=== PATIENT | male | born 1975 | race Caucasian/White ===

== ENCOUNTER 2017-03-22 18:31 | Emergency (ER) | payer OTHER ==
[~2017-03-22] VITALS: Ht 182.9 cm; Wt 99.8 kg
[~2017-03-22 18:31] MED LIST: AMITRIPTYLINE100 M1 PO; ATORVASTATIN CA10 MG PO; BABY ASPIRIN CH81 MG PO; BACTRIM DS 8001 TAB PO; CATAPRES 0.1MG0.1 MG PO; CHLORPROMAZINE25 M2 PO; CIPRO 500MG TA500 MG PO; CLOZAPINE100 MG PO; CLOZAPINE200 MG PO; CLOZARIL25 MG PO; ESCITALOPRAM20 MG PO; FAZACLO PO; FAZACLO25 MG PO; FOLIC ACID 1 MG PO; FOLIC ACID1 M1 PO; GABAPENTIN300 M2 PO; GABAPENTIN400 MG PO; HUMALOG 100U100 U/ML SC; HUMALOG100 U/ML SC; HYDROXYZINE PA100 MG PO; HYDROXYZINE PAM50 MG PO; IBUPROFEN400 MG PO; IBUPROFEN600 M1 PO; JARDIANCE10 MG PO; JARDIANCE25 MG PO; KEFLEX500 MG PO; LAMICTAL 25MG T25 MG PO; LAMICTAL 25MG25 MG PO; LAMOTRIGINE100 MG PO; LAMOTRIGINE200 MG PO; LEVEMIR 10100 UNITS/ SC; LEVEMIR100 UNIT/1 SC; LIPITOR40 M1 PO; LITHIUM CARBON150 M1 PO; LITHIUM CARBON150 MG PO; LITHIUM CARBON300 M2 PO; LITHIUM CARBON300 M3 PO; LITHIUM CARBON300 M4 PO; LITHIUM CARBON300 M5 PO; LITHIUM CARBON450 M1 PO; LORAZEPAM1 MG PO; LYRICA100 MG PO; METHYL B PO; MIRTAZAPINE15 MG PO; MOTRIN 400 MG400 MG PO; MOTRIN 400MG (400 MG PO; NALTREXONE HCL50 MG PO; NATURAL FOLIC0.4 MG PO; NEURONTIN100 MG PO; NICODERM C14 MG/24 H TOP; NOVOLIN R1000 UNIT2 SC; NOVOLOG100 U/ML SC; NOVOLOG100 UNIT/2 SC; OMEPRAZOLE20 M2 PO; OMEPRAZOLE40 M1 PO; ONE DAILY MULT1 EAC2 PO; PANTOPRAZOLE SO20 MG PO; PERCOCET 325 MG1 TA2 PO; PHENOBARBITAL30 M1 PO; PHENOBARBITAL32.4 M1 PO; POLYTRIM EYE DR10 ML OP; PRAZOSIN HCL1 M1 PO; PRAZOSIN HCL2 M1 PO; PRAZOSIN HCL2 MG PO; PRINIVIL 5MG5 MG PO; PROPRANOLOL HCL10 MG PO; PROPRANOLOL HCL20 MG PO; PROZAC10 M1 PO; REMERON 15MG TA15 MG PO; REMERON30 MG PO; RISPERIDONE0.5 M1 PO; Senokot S PO; TRAZODONE HCL100 M1 PO; TRAZODONE HCL150 M1 PO; TYLENOL500 MG PO; Theragran Vitamins PO; V-GO SC; VENLAFAXINE HYD75 M1 PO; VIGAMOX3 ML OPH; VITAMIN B-1100 MG PO; VITAMIN B-150 MG PO; VITAMIN B1100 MG PO; ZOFRAN 4 MG TABL4 MG PO; ZOLPIDEM TARTRA10 MG PO; ZOLPIDEM TARTRAT5 MG PO
[2017-03-22 19:05] LABS: ABSOLUTE BASOPHIL COUNT 0 /CUMM (0.0-0.2); ABSOLUTE EOSINOPHIL COUNT 0.2 /CUMM (0.0-0.7); ABSOLUTE GRANULOCYTE CT 6.2 /CUMM (1.4-6.5); ABSOLUTE LYMPH COUNT 2.6 /CUMM (1.2-3.4); ABSOLUTE MONOCYTE COUNT 0.8 /CUMM (0.10-0.60); BASOPHIL % 0.4 % (0.0-2.0); EOSINOPHIL % 2.4 % (0-5); GRANULOCYTE % 62.3 % (42.2-75.2); MEAN CORPUSCULAR HGB 31.1 PG (27.0-31.0); MEAN CORPUSCULAR HGB CONC 33.5 G/DL (33.0-37.0); MEAN CORPUSCULAR VOLUME 92.8 FL (80.0-94.0); MEAN PLATELET VOLUME 7.2 FL (7.4-10.4); PLATELET COUNT 358 /CUMM (130-400); RBC DISTRIBUTION WIDTH 13.6 % (11.5-14.5); RED BLOOD CELL CT 4.53 /CUMM (4.70-6.10); WHITE BLOOD CELL COUNT 9.9 /CUMM (4.8-10.8)
--- NOTE | 2017-03-23 00:01 | ED AMS/SEIZURE/WEAK/DIZZY ---
History of Present Illness General Chief Complaint: General Adult Stated Complaint: BIBA WITH UN RESPONSE Source: patient, EMS Exam Limitations: not alert/orientated Vital Signs & Intake/Output Vital Signs & Intake/Output Vital Signs Date Time Temp Pulse Resp B/P B/P Pulse O2 O2 Flow FiO2 Mean Ox Delivery Rate 03/23 0052 96.8 85 18 134/63 97 Room Air 03/22 2246 96.7 83 18 131/61 98 03/22 1934 96.7 80 20 128/67 100 Nasal 2.0L Cannula 03/22 1841 96 Nasal 2.0L Cannula 03/22 1840 89 20 118/59 93 Room Air ED Intake and Output 03/23 0000 03/22 1200 Intake Total 1600 Output Total 600 Balance 1000 Intake, IV 1600 Output, Urine 600 Patient 220 lb Weight Weight Estimated Measurement Method Allergies Coded Allergies: quetiapine (Severe, THROAT CLOSES 05/03/16) perphenazine (Mild, ANXIETY 05/03/16) Reconcile Medications Aspirin (Children's Aspirin) 81 MG TAB 162 MG PO DAILY HEART HEALTH Atorvastatin Calcium (Lipitor) 40 MG TABLET 1 TAB PO DAILY CHOLESTEROL ( Reported) Chlorpromazine HCl 25 MG TABLET 25 MG PO TID Antipsychotic Fluoxetine HCl (Prozac) 10 MG CAPSULE 1 CAP PO DAILY MENTAL HEALTH (Reported) Folic Acid 1 MG TABLET 1 MG PO DAILY vitamin supplementation Insulin Aspart (Novolog) 100 UNIT/1 ML VIAL 0 UNITS SC TIDAC Diabetes Blood sugar Units 80-150 4 units 151-200 6 units 201-250 8 units 251-300 10 units 301-350 12 units 351-400 14 units Insulin Aspart (Novolog) 100 UNIT/1 ML VIAL 0 UNITS SC AT BEDTIME diabetes 80-250 : 0 units 251-300 : 2 units 301-350 : 3 units 351: 400 4 units Insulin Detemir (Levemir) 100 UNIT/1 ML VIAL 22 UNITS SC BID Diabetes Lisinopril (Prinivil) 5 MG TAB 1 TAB PO DAILY BP (Reported) Stepping Stone Carbonate (Stepping Stone Carbonate ER) 450 MG TABLET.ER 1 TAB PO DAILY MENTAL HEALTH (Reported) Stepping Stone Carbonate 300 MG TABLET 600 MG PO QHS MENTAL HEALTH (Reported) Multivitamin (One Daily Multivitamin) 1 EACH TABLET 1 TAB PO DAILY supplement Omeprazole 20 MG CAPSULE.DR 20 MG PO DAILY AC Reflux Prazosin HCl 1 MG CAPSULE 1 CAP PO QPM HTN (Reported) Thiamine HCl (Vitamin B-1) 100 MG TABLET 1 TAB PO DAILY SUPPLEMENTS Trazodone HCl 150 MG TABLET 1 TAB PO QPM DEPRESSION (Reported) Triage Note: BIBA AFTER BEING FOUND UNRESPONSIVE AT HOME BY FAMILY MEMBER. LAST KNOWN WELL WAS LAST PM AT 1700. PT WITH HX OF ETOH ABUSE AND WAS RECENTLY DISCHARGED FROM A 60 DAY ETOH REHAB CENTER. PER EMS WAS RESPONSIVE TO DEEP PAIN ONLY, GLUCOSE 169. 18 GUAGE PLACED IN FIELD. IVF BOLUS INFUSING. --UPON ARRIVAL PT WITH EYES CLOSED, RESPONDING TO VERBAL STIMULI, PUPILS 8MM ROUND AND REACTIVE. RESPIRATIONS UNLABORED SKIN WARM AND DRY. DR WILLIS IN TO SEE PT UPON ARRIVAL Triage Nurses Notes Reviewed? yes HPI: Mr. Mccrary is a 42 yo m w/ PMH of DTs, peripheral neuropathy, hypertension, hyperlipidemia, asthma, COPD, TIM, GERD, cirrhosis, bipolar disorder, alcohol dependence status post 60 day rehabilitation, diabetes with insulin pump in place and previous DKA BIBA for unresponsive state. Per EMS, patient LAST seen normal by his daughter last night. She saw him briefly this morning and he seemed alright and when she came home later on today he was unresponsive. Patient was recently discharged from a 60 day rehabilitation facility for alcohol intoxication. Per EMS patient's initial glucose was 160s. He was slightly hypotensive and her out with blood pressure 92 systolic. He aroused only to painful stimuli and loud verbal stimuli moderating incomprehensible sounds. Patient is unable to provide much history given his mental status. Past History Travel History Traveled to [place] past 21 day No Medical History Any Pertinent Medical History? 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 Yes Review of Systems Review of Systems Constitutional: Reports: see HPI. Comments Initially, unable to obtain review of systems secondary to lethargy. Review of systems: See HPI, All other systems negative. Constitutional: no chills no fever, no malaise no weight loss HEENT: No visual changes, no sore throat, no congestion, no ear pain Cardiovascular: No chest pain , no palpitations, no orthopnea Skin: no rashes, no change in skin Respiratory: No dyspnea no cough no sputum no hemoptysis GI: No nausea, no vomiting, no diarrhea, no bloating/constipation : + urinary retention. No dysuria No hematuria, no frequency, no discharge Musculoskeletal: No joint pain, no joint swelling, no back pain, no neck pain, Neurologic: No numbness no confusion, no headache Psych: No stress, no depression. Heme/endocrine: No bruising no bleeding Immunology: No lymphadenopathy Physical Exam Physical Exam General Appearance: well developed/nourished, no apparent distress, lethargic, obese Head: atraumatic, normal appearance Eyes: Bilateral: PERRL, EOMI, other (dilated to 8mm bilaterally). Ears, Nose, Throat: normal pharynx, normal ENT inspection Neck: normal inspection, supple Respiratory: normal breath sounds, chest non-tender, no respiratory distress Cardiovascular: regular rate/rhythm Gastrointestinal: normal bowel sounds, soft Rectal: deferred Back: normal inspection Extremities: normal range of motion Neurologic/Psych: no motor/sensory deficits, depressed affect Skin: intact, normal color, warm/dry Core Measures ACS in differential dx? No CVA/TIA Diagnosis: No Severe Sepsis Present: No Septic Shock Present: No Progress Differential Diagnosis: alcohol intoxication, benign positional vertigo, CVA/ stroke, dehydration, drug intoxication, encephalitis, electrolyte imbalance, hypoglycemia, seizure disorder, DKA Plan of Care: Orders Procedure Date/time Status FingerStick- Glucose 03/22 183 Active URINE DRUGS OF ABUSE 03/22 183 Complete LACTIC ACID 03/22 1838 Complete ETHANOL 03/22 1838 Complete COMPREHENSIVE METABOLIC PANEL 03/22 183 Complete CBC WITHOUT DIFFERENTIAL 03/22 183 Complete EKG 03/22 183 Active Laboratory Tests 03/22/17 2138: Lactic Acid Cancelled 03/22/17 1857: Anion Gap 12, Estimated GFR > 60, BUN/Creatinine Ratio 10.0, Glucose 122 H, Lactic Acid 1.7, Calcium 8.6, Total Bilirubin 0.4, AST 87 H, ALT 55, Alkaline Phosphatase 100, Total Protein 6.7, Albumin 4.0, Globulin 2.7, Albumin/Globulin Ratio 1.5, CBC w Diff NO MAN DIFF REQ, RBC 4.53 L, MCV 92.8, MCH 31.1 H, RDW 13.6, MPV 7.2 L, Gran % 62.3, Lymphocytes % 26.5, Monocytes % 8.4, Eosinophils % 2.4, Basophils % 0.4, Absolute Granulocytes 6.2, Absolute Lymphocytes 2.6, Absolute Monocytes 0.8 H, Absolute Eosinophils 0.2, Absolute Basophils 0, PUBS MCHC 33.5, Serum Alcohol 295.0 03/22/17 1830: Urine Opiates Screen < 100.00, Methadone Screen 42, Barbiturate Screen < 60, Ur Phencyclidine Scrn < 6.00, Amphetamines Screen < 100, U Benzodiazepines Scrn < 85, Urine Cocaine Screen < 50, Urine Cannabis Screen < 5.00 42 yo m BIBA for AMS and lethargy. Normal initial vitals here in ED despite inital BP being 92 systolically. Glucose was within normal limits. Given patient's past medical history of alcohol abuse and recent discharge from rehabilitation, likely this is an episode of alcohol intoxication. We'll obtain basic labs including ethanol level as well as serum tox and urine tox. Patient' s initial vitals here in the ED are otherwise unremarkable. Initial glucose was noted to be elevated. Patient did have an insulin pump that was connected in the right lower quadrant. This was removed and placed with the rest of his belongings. After the exposure, there is no evidence of trauma. Patient does arouse to verbal stimuli and is able to mumble some sentences. Patient's ethanol is 295. Patient is comfortably sleeping. Will allow for him to rest pending sobriety and then reassess. Patient speaking clearly. He denies HI/SI. Review of systems at that point in time was obtained. The patient endorses having a few drinks today. He thinks he fell asleep and that's why his daughter was unable to arouse him. Patient by mouth challenge here in ED. He then ambulated without any gait disturbance. Patient's daughter was called and she picked him up here to take home. (HASEEB LACKEY,[place]) Initial ED EKG: none Departure Departure Time of Disposition: 0004 Disposition: HOME OR SELF CARE Condition: Stable Clinical Impression Primary Impression: Alcohol intoxication Referrals: VIKASH CORNELIUS APRN (PCP/Family) Additional Instructions: Please do not drink alcohol as it can cause you to fall or have a serious injury or even . Use your insulin pump as prescribed by her primary care doctor. Make sure you eat some food when you take your insulin, especially if you have been drinking. If you have any falls, worsening pain or any other concerning symptoms please return to the emergency department for further evaluation. Departure Forms: Customer Survey General Discharge Information
[2017-03-23 00:52] VITALS: BP 134/63
== END 2017-03-23 01:01 ==
LOC: ERH 18:31
PROVIDERS: Emergency Medicine
DX: F10.129 Alcohol abuse with intoxication, unspecified (principal); E11.9 Type 2 diabetes mellitus without complications; Z79.4 Long term (current) use of insulin; I10 Essential (primary) hypertension
CPT/HCPCS: 80307; 93005; 93010; 96360; 96361; G0480

== ENCOUNTER → 2017-05-08 | Day surgery (SDC) | payer OTHER ==
[~2017-05-08] VITALS: Ht 175.3 cm; Wt 95.3 kg
[~2017-05-08] MED LIST changes: +CHLORPROMAZINE PO; +CHLORPROMAZINE50 M2; +EFFEXOR XR150 M1 PO; +NEURONTIN600 M1 PO; +PROTONIX40 M3 PO; +SIMVASTATIN10 M1 PO
[2017-05-08 08:54] LABS: ABSOLUTE BASOPHIL COUNT 0 /CUMM (0.0-0.2); ABSOLUTE EOSINOPHIL COUNT 0.2 /CUMM (0.0-0.7); ABSOLUTE LYMPH COUNT 1.1 /CUMM (1.2-3.4); ABSOLUTE MONOCYTE COUNT 0.5 /CUMM (0.10-0.60); BASOPHIL % 0.4 % (0.0-2.0); GRANULOCYTE % 79.7 % (42.2-75.2); HEMATOCRIT 44.3 % (42-52); MEAN CORPUSCULAR HGB 30.6 PG (27.0-31.0); MEAN CORPUSCULAR HGB CONC 33.1 G/DL (33.0-37.0); MEAN CORPUSCULAR VOLUME 92.7 FL (80.0-94.0); MEAN PLATELET VOLUME 7.9 FL (7.4-10.4); PLATELET COUNT 271 /CUMM (130-400); RBC DISTRIBUTION WIDTH 14.3 % (11.5-14.5); RED BLOOD CELL CT 4.78 /CUMM (4.70-6.10); WHITE BLOOD CELL COUNT 8.8 /CUMM (4.8-10.8)
--- NOTE | 2017-05-08 14:23 | Operative Report ---
Operative/Inv Procedure Report Surgery Date: 05/08/17 Name of Procedure: Excision pilonidal cyst Pre-Operative Diagnosis: Pilonidal cyst Post-Operative Diagnosis: Same Estimated Blood Loss: scant Surgeon/Bait Painter: TANO LACKEY,ANAND Harp/Onel ATKINSON Anesthesia: local monitored anesthesi Operative/Procedure Note Note: After consent he is brought to the operating room and laid prone. He was sedated and his gluteal region prepped and draped. There was a solitary pilonidal pit in the midline. There was induration extending to the right of the midline. An ellipse of skin was marked around the defect and associated cyst to create a right angled elliptical excision. The skin was after local anesthesia and then the skin incised sharply. Carried dissection through subcutaneous tissues tissues with cautery to circumferentially excise the pit in associated cyst. Wound was then irrigated with saline and hemostasis achieved with cautery. To close the skin we elevated a flap at the corner of the "T". And sutured the corner to the contralateral side with the interrupted mattress 4 -0 nylon suture. The 2 flap edges were then reapproximated with interrupted mattress sutures, vertical. Wound was dressed with bacitracin ointment and sterile gauze. Patient tolerated procedure well CC: VIKASH CRONELIUS APRN
== END ==
LOC: STS 03:11
PROVIDERS: Surgery
DX: L05.91 Pilonidal cyst without abscess (principal); J44.9 Chronic obstructive pulmonary disease, unspecified; F17.200 Nicotine dependence, unspecified, uncomplicated; E11.9 Type 2 diabetes mellitus without complications; Z79.4 Long term (current) use of insulin; Z96.41 Presence of insulin pump (external) (internal); I10 Essential (primary) hypertension; K21.9 Gastro-esophageal reflux disease without esophagitis; E78.00 Pure hypercholesterolemia, unspecified
CPT/HCPCS: 36415; J2250

== ENCOUNTER 2017-05-30 20:43 | Inpatient (IN) | payer OTHER ==
[~2017-05-30] VITALS: Ht 175.3 cm; Wt 64.1 kg
[~2017-05-30 20:43] MED LIST changes: -CHLORPROMAZINE PO; -CHLORPROMAZINE50 M2; +NEURONTIN400 M1 PO; -NEURONTIN600 M1 PO; +PRINIVIL5 M1 PO
--- NOTE | 2017-05-30 20:46 | ED PSYCHIATRIC COMPLAINT ---
See Addendum History of Present Illness General Chief Complaint: Psychiatric Related Complaint Stated Complaint: +SI Source: patient, EMS Exam Limitations: no limitations Vital Signs & Intake/Output Vital Signs & Intake/Output Vital Signs Date Time Temp Pulse Resp B/P B/P Pulse O2 O2 Flow FiO2 Mean Ox Delivery Rate 05/31 1210 98.0 78 18 138/82 97 Room Air Room Air 05/31 1200 98.0 78 18 138/82 05/31 0705 97.2 86 18 138/64 05/31 0630 97.2 86 18 138/64 97 Room Air 05/31 0042 96.7 83 16 111/59 94 Room Air 05/30 2240 98.0 84 16 142/76 95 Room Air 05/30 2049 98.7 96 18 140/67 97 Room Air ED Intake and Output 05/31 0000 05/30 1200 Intake Total Output Total Balance Patient 210 lb Weight Weight Reported by Patient Measurement Method Allergies Coded Allergies: quetiapine (Severe, THROAT CLOSES...SEROQUEL 05/06/17) perphenazine (Mild, ANXIETY...TRILAFON 05/06/17) clozapine (From CLOZARIL) (SEIZURES 05/06/17) Reconcile Medications Aspirin (Children's Aspirin) 81 MG TAB 162 MG PO DAILY HEART HEALTH [CHLORPROMAZINE] 125 MG PO NIGHTLY MENTAL HEALTH (Reported) Chlorpromazine HCl 50 MG TABLET 1 TAB BID MENTAL HEALTH (Reported) Gabapentin (Neurontin) 600 MG TABLET 1 TAB PO TID SEIZURES (Reported) Lisinopril (Prinivil) 5 MG TAB 1 TAB PO DAILY BP (Reported) [place] Carbonate ([place] Carbonate ER) 450 MG TABLET.ER 1 TAB PO DAILY MENTAL HEALTH (Reported) [place] Carbonate 300 MG TABLET 600 MG PO QHS MENTAL HEALTH (Reported) Pantoprazole Sodium (Protonix) 40 MG TABLET.DR 1 TAB PO DAILY GERD (Reported) Prazosin HCl 1 MG CAPSULE 2 CAP PO QPM HTN (Reported) Simvastatin (Simvastatin*) 10 MG TABLET 1 TAB PO QPM CHOLESTEROL (Reported) Trazodone HCl 100 MG TABLET 2 TAB PO QPM SLEEP (Reported) Venlafaxine HCl (Effexor XR) 150 MG CAP.ER.24H 1 CAP PO DAILY MENTAL HEALTH ( Reported) Triage Nurses Notes Reviewed? yes Onset: Abrupt Duration: day(s): (1), constant, continues in ED, getting worse Timing: single episode today Severity: mild, moderate Associated Symptoms: anxiety, suicidal ideation HPI: 42-year-old male with past medical history of depression and suicidal ideation presents for evaluation of suicidal thoughts. Patient states he is been fighting with his family at his girlfriend over the past few days. Today he began thinking about hurting himself and developed a plan to cut his wrists. He called the suicide hotline who called 911 and he was brought in by EMS. Patient has a history of prior suicide attempts with insulin overdose. Patient states that he drank a pint of vodka earlier today before he startED having the thoughts. She denies taking any overdose of any medications. He denies recent alcohol regularly last drink was 2 weeks ago and today. He is taking all of his psychiatric meds as directed. He denies any illicit drug use. No chest pain no shortness of breath no illicit drug use. No other associated symptoms. (EMELIA VELASQUEZ PA-C) Past History Travel History Traveled to [place] past 21 day No Medical History Any Pertinent Medical History? 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 Yes (EMELIA VELASQUEZ PA-C) Review of Systems Review of Systems Constitutional: Reports: no symptoms. EENTM: Reports: no symptoms. Respiratory: Reports: no symptoms. Cardiovascular: Reports: no symptoms. GI: Reports: no symptoms. Genitourinary: Reports: no symptoms. Musculoskeletal: Reports: no symptoms. Skin: Reports: no symptoms. Neurological/Psychological: Reports: see HPI, anxiety, depressed, emotional problems, other (SI). Hematologic/Endocrine: Reports: no symptoms. Immunologic/Allergic: Reports: no symptoms. All Other Systems: Reviewed and Negative (EVA WATTS,EMELIA) Physical Exam Physical Exam General Appearance: well developed/nourished, no apparent distress, alert, awake , anxious Neurological/Psychiatric: no motor/sensory deficits, awake, alert, anxious, depressed affect, oriented x 3 Appearance/Memory/Insight: appropriate appearance, appropriate insight Behavoir/Eye Contact/Speech: cooperative, normal speech, good eye contact Thoughts/Hallucinations: normal thought pattern, no apparent hallucination Skin: intact, normal color, warm/dry Comments: General: Hemodynamically stable. Afebrile. Well-developed well-nourished person in no acute distress. Head: Atraumatic, normocephalic Eyes: EOMI bilaterally, PERRLA, conjunctiva are not injected, no discharge, no nystagmus, fundus grossly normal bilaterally Nose: Atraumatic, no rhinorrhea, mucosa is not erythematous, no epistaxis. Sinuses are non-tender Ears: TM pearly amado color bilaterally, external canal is clear, no discharge, hearing is normal Mouth: Appropriate dentition, no gingival bleeding, moist mucus membranes, no oral lesions, tonsils not erythematous or enlarged and free of exudate. Uvula rises midline. Neck: Supple, full active ROM, no lymphadenopathy, no midline tenderness to palpation, no thyromegaly, no tracheal deviation. Back: Non-tender, full active ROM, no scoliosis, no CVA tenderness Cardiovascular: regular rate and rhythm, no murmurs, rubs, or gallops. No JVD Respiratory: Chest is nontender. Regular respiratory rate and effort. No accessory muscle use. Lungs clear to auscultation bilaterally. Abdomen: Soft, non-tender, non-distended, no organomegaly. No rebound tenderness or guarding. Normoactive bowel sounds. Extremities: No edema. No gross deformities. No joint swelling. No calf swelling or tenderness. Full active and passive ROM. Strength 5/5 in upper and lower extremities. Peripheral pulses 2+ bilaterally, Patellar DTR 2+ Neuro: No confusion. Motor and sensory function is intact. Appropriate gait. Cerebellar function intact. Skin: Warm and dry. Appropriate turgor. No lesions or bruising. No appreciable rash on exposed skin. Cleared? (statement below) Yes Medical Clearance Statement * patient denies further consideration of suicide * outpt. psych referral * no evidence of toxic ingestion * on re-evaluation the patient is awake and alert with normal speech and normal gait. The patient is clinically sober and safe for discharge / detox referral SAD PERSONS SAD PERSONS Response Value Male Sex? yes 1 Age <19 or >45 years? yes 1 Depression/Hopelessness? yes 2 Previous Attempts/Psych Care yes 1 Excessive Ethanol/Drug Use? yes 1 Rational Thinking Loss? yes 2 Single//? yes 1 Organized/Serious Attempt yes 2 Social Support? has support 0 Stated Future Intent? yes 2 Total 13 SAD PERSONS Done? yes (EMELIA VELASQUEZ PA-C) Progress Differential Diagnosis: dementia, drug intoxication, drug overdose, drug withdrawal, electrolyte abnormality, hypoglycemia, DEPPRESION, ANXIETY Plan of Care: Orders Procedure Date/time Status Regular Diet 05/31 B Active LITHIUM 05/30 2115 Complete Continuous Observation Monitor 05/30 2100 Active ED CRISIS PSYCH CONSULT 05/30 2049 Active URINE DRUG SCREEN FOR ER ONLY 05/30 2047 Complete URINALYSIS 05/30 2047 Complete ETHANOL 05/30 2047 Complete COMPREHENSIVE METABOLIC PANEL 05/30 2047 Complete CBC WITHOUT DIFFERENTIAL 05/30 2047 Complete Laboratory Tests 05/30/172114: Anion Gap 14, Estimated GFR > 60, BUN/Creatinine Ratio 12.9, Glucose 146 H, Calcium 9.7, Total Bilirubin 0.4, AST 15 L, ALT 30, Alkaline Phosphatase 71, Total Protein 7.1, Albumin 4.4, Globulin 2.7, Albumin/Globulin Ratio 1.6, CBC w Diff NO MAN DIFF REQ, RBC 4.70, MCV 92.3, MCH 30.3, RDW 14.4, MPV 7.7, Gran % 75.1, Lymphocytes % 16.1 L, Monocytes % 6.8, Eosinophils % 1.2, Basophils % 0.8 , Absolute Granulocytes 9.8 H, Absolute Lymphocytes 2.1, Absolute Monocytes 0.9 H, Absolute Eosinophils 0.2, Absolute Basophils 0.1, PUBS MCHC 32.8 L, [place] 1.0, Serum Alcohol 220.0 05/30/172104: [place] Cancelled 05/30/172103: Urine Opiates Screen < 100.00, Methadone Screen < 40, Barbiturate Screen < 60, Ur Phencyclidine Scrn < 6.00, Amphetamines Screen < 100, U Benzodiazepines Scrn < 85, Urine Cocaine Screen < 50, Urine Cannabis Screen < 5.00, Urine Color STRAW , Urine Clarity CLEAR, Urine pH 6.0, Ur Specific [place] <= 1.005, Urine Protein NEG, Urine Ketones NEG, Urine Nitrite NEG, Urine Bilirubin NEG, Urine Urobilinogen 0.2, Ur Leukocyte Esterase NEG, Ur Microscopic EXAM NOT REQUIRED, Urine Hemoglobin NEG, Urine Glucose NEG Patient will be medically cleared before seeing crisis. He is currently reports drinking a pint of vodka today so likely he will need to sober up overnight. We will also check a lithium level. 10:30 PM: Blood work is within normal limits. Ethanol level is elevated to about 200. Discussed case with crisis. They will let him sober up before seeing him in the morning. 1 AM: Patient has been resting comfortably. Patient signed out to Dr. Coello. (EMELIA VELASQUEZ PA-C) Hand-Off Endorsed To: LAZ COONEY MD Endorsed Time: 0115 Pending: consult (crisis) (EMELIA VELASQUEZ PA-C) Hand-Off Endorsed To: GREGORIA BARTH DO Endorsed Time: 0700 Pending: consult (LAZ COONEY MD) Departure Departure Disposition: STILL A PATIENT Condition: Stable Referrals: VIKASH CORNELIUS APRN (PCP/Family) Departure Forms: Customer Survey General Discharge Information (EMELIA VELASQUEZ PA-C) Departure Clinical Impression Primary Impression: Suicidal ideation Secondary Impressions: Alcohol intoxication PA/PARK ACTIVITIES COORDINATOR Co-Sign Statement Statement: ED Attending supervision documentation- x I saw and evaluated the patient. I have also reviewed all the pertinent lab results and diagnostic results. I agree with the findings and the plan of care as documented in the PA's/PARK ACTIVITIES COORDINATOR's documentation. [] I have reviewed the ED Record and agree with the PA's/PARK ACTIVITIES COORDINATOR's documentation. [] Additions or exceptions (if any) to the PAs/PARK ACTIVITIES COORDINATOR's note and plan are summarized below: [] (LAZ COONEY MD) Departure Comments 05/31/17 12:22 pm The patient was signed out to me by at 7 AM. He is pending evaluation by crisis. (GREGORIA BARTH DO)
--- NOTE | 2017-05-30 21:00 | NUR ---
PT BIBA ON PEC.. PT STATES THAT HE CALLED THE HELP LINE AND STATED THAT HE CANT TAKE IT ANYMORE AND THAT HE WAS GOING TO OFF HIMSELF. WHEN POLICE ARRIVED PT STATED TO POLICE THAT HE HAD A KNIFE TO HIS ARM. PT ADMITS TO DRINKING A PINT OF VODKA. PT AMBULATED TO THE BATHROOM WITH A WOBBLY GAIT.. PT SPEECH IS SLURRED.. PT HAS A HX OF DM AND HAS A PUMP ON HIM.. PT STATES HIS LAST BLOOD SUGAR WAS 343 AT 1600 TODAY
--- NOTE | 2017-05-30 21:01 | NUR ---
CHINA VELASQUEZ AT BEDSIDE FOR EVALUATION
--- NOTE | 2017-05-30 21:21 | NUR ---
LABS DRAWN (SST, LAV) AND SENT TO LAB
[2017-05-30 21:22] LABS: ABSOLUTE BASOPHIL COUNT 0.1 /CUMM (0.0-0.2); ABSOLUTE EOSINOPHIL COUNT 0.2 /CUMM (0.0-0.7); ABSOLUTE GRANULOCYTE CT 9.8 /CUMM (1.4-6.5); ABSOLUTE LYMPH COUNT 2.1 /CUMM (1.2-3.4); ABSOLUTE MONOCYTE COUNT 0.9 /CUMM (0.10-0.60); BASOPHIL % 0.8 % (0.0-2.0); EOSINOPHIL % 1.2 % (0-5); GRANULOCYTE % 75.1 % (42.2-75.2); HEMATOCRIT 43.4 % (42-52); MEAN CORPUSCULAR HGB 30.3 PG (27.0-31.0); MEAN CORPUSCULAR HGB CONC 32.8 G/DL (33.0-37.0); MEAN CORPUSCULAR VOLUME 92.3 FL (80.0-94.0); MEAN PLATELET VOLUME 7.7 FL (7.4-10.4); PLATELET COUNT 276 /CUMM (130-400); RBC DISTRIBUTION WIDTH 14.4 % (11.5-14.5)
--- NOTE | 2017-05-30 21:55 | NUR ---
Crisis consult received, however the patient is not appropriate for evaluation this evening, given his BAL. He will be held over and evaluated in the AM. Case discussed with RN, Evelyn, Dr. Humphries and Dr. Arango.
--- NOTE | 2017-05-30 22:39 | NUR ---
PT AMBULATED TO BATHROOM WITH STRONG STEADY GAIT. PT STATES THAT HE FELLS A LITTLE BETTER BUT IS STILL NOT DOING WELL.
--- NOTE | 2017-05-30 22:47 | NUR ---
PT'S BED CHANGED FROM HALLWAY TO ROOM 13. PT ASKED TO REMOVE HIS INSULIN PUMP. 2ND VALUABLES BAG PLACED IN ED SAFE. BSG = 156.
--- NOTE | 2017-05-31 02:50 | NUR ---
RESTING NO DISTRESS. SITTER IN PLACE
--- NOTE | 2017-05-31 04:02 | NUR ---
PATIENT CONTINUES TO SLEEP AT THIS TIME W/ REGULAR RESPIRATIONS NOTED. AWAITING CRISIS EVAL IN AM. SITTER REMAINS W/ PATIENT.
--- NOTE | 2017-05-31 06:31 | NUR ---
VSS, PT INFORMED BREAKFAST WILL ARRIVE AT 0700.
--- NOTE | 2017-05-31 06:32 | NUR ---
SITTER IN PLACE FOR SAFETY.
[2017-05-31 07:05] VITALS: BP 138/64
--- NOTE | 2017-05-31 07:29 | NUR ---
PT SLEEPING AT THIS TIME, REGULAR RESPIRATIONS NOTED. SITTER REMAINS AT DOORWAY.
--- NOTE | 2017-05-31 10:30 | NUR ---
PT RESTING COMFORTABLY, NO COMPLAINTS AT THIS TIME.
[2017-05-31 12:00] VITALS: BP 138/82
[2017-05-31] MEDS ORDERED: ASPIRIN EC81 M1 PO (12:27)
[2017-05-31] MEDS ORDERED: HYDROXYZINE PAM25 M2 PO (12:31)
[2017-05-31] MEDS ORDERED: PROAIR HFA8.5 GM INH (12:32)
[2017-05-31] MEDS ORDERED: BENZTROPINE MESY1 M1 PO (12:33)
--- NOTE | 2017-05-31 12:35 | NUR ---
REPEAT ACCUCHECK: 278, RE-MED WITH REGULAR INSULIN 6 UNITS, AND ATIVAN 1MG PO FOR C/O ANXIETY AND SLIGHT TREMORS.
[2017-05-31] MEDS ORDERED: CHLORPROMAZINE50 M2 PO (12:36)
[2017-05-31] MEDS ORDERED: OXYCODONE-ACET1 EACH PO (12:37)
[2017-05-31] MEDS ORDERED: HUMALOG100 UNIT/1 (12:38)
[2017-05-31] MEDS ORDERED: LITHIUM CARBON150 M1 PO (12:38)
[2017-05-31 14:00] VITALS: BP 136/64
--- NOTE | 2017-05-31 14:15 | NUR ---
PT INFORMED OF PLAN OF CARE: BED SEARCH.
--- NOTE | 2017-05-31 14:30 | ED PSYCH CRISIS CONSULTATION ---
See Addendum Crisis Consult Basic Assessment Date of Consult: 05/31/17 Responsible Person/Accompanied By: None/Self Insurance Authorization: Insurance #1: Insurance name: COURTNEY Perez C&A Phone number: Policy number: [id number] Group number: Authorization number: ED Provider: Patient's ED Provider: EMELIA VELASQUEZ PA-C Primary Care Physician: Patient's PCP: VIKASH CORNELIUS APRN PCP's Current Psychiatrist: Kacy Nguyen APRN at [facility] Chief Complaint: Psychiatric Related Complaint Patient's Quote: "I wanted to hurt myself, but I guess the knife was too dull." Present Illness: 42 M BIBA on PEER 05/30/17 @ 2100, after he called the [facility] to state that he can't take it anymore and he was going to off himself, per the triage note. He told police that he put a knife to his arm. No lacerations or puncture noted. He had drunk one pint of vodka that day. He had been inpatient at [facility] and then [facility] from May 2016 through February,, per his casemanager at [facility], Kacy Stoll, . Per TC with her, the patient had suicidal thoughts begin to return last week, when he had an argument with his girlfriend, Ayesha, who is the mother of their two children. He missed his IOP session at [facility] on Saturday, due to a planned dental appointment. He was stable on Saturday. The patient reports feeling depressed about the argument with Ayesha, and also a disagreement with their daughter, Vito Vivar, who gave him excuses to not take him to the bank yesterday. Earlier in the day, he had used [facility] to go to a followup appointment with Dr. Hansel Mcqueen after a cyst removal on his buttock two weeks ago. He had purchased the pint of vodka he drank after [facility] MD appointment. He cannot identify a trigger for his thought sof self-harm yesterday. He has 2X/day VNA visits from Tonja at [facility]. they saw him on 05/30/17 in the AM, but prepoured meds for 05/29/17. They also prepoured for 05/30/17 PM, since he had a late MD appointment with Dr. Mcqueen. The patient reports he started drinking at 4 PM. MSE: Today, he is alert and oriented. He denies SI/HI. He denies AH or VH, and presents no saumya delusions. He reports sleeping well at home and that his appetite is normal. He denies hopelessness, helplessness and worthlessness. He denies other alcohol use before yesterday's relapse. He denies other drug use. He has a history of cutting in his 30's. The patient reports he had wanted to cut his left forearm, "But the knife was dull, I guess." He denies having thoughts of killing himself. He live in the basement of his sister Gabriela's house with his two daughters. Their mother, Ayesha, is in residential psychiatric care in [place]. Collateral: The patient's sister, Bethany, (C), is very concerned about his safety if he is discharged without inpatient psychiatric treatment, "You are signing a warrant if you release him now." Despite his denials of drinking, she believes he has been drinking regularly, but has had little contact with him. Patient's Address: [address] [place] [address] Other Who Do You Live With? Family Family/Informants Interviewed: Bethany, sister, (C) [facility], Kacy Stoll , Allergies - Coded Allergies: quetiapine (Severe, THROAT CLOSES...SEROQUEL 05/06/17) perphenazine (Mild, ANXIETY...TRILAFON 05/06/17) clozapine (From CLOZARIL) (SEIZURES 05/06/17) Current Medications - Scheduled Medications Aspirin (Ecotrin*) 81 MG TABLET. 1 TAB PO DAILY HEART HEALTH (Reported) Entered as Reported by MAKENZIE BOJORQUEZ on 05/31/17 1227 Chlorpromazine HCl 25 MG TABLET 5 TAB PO QPM MENTAL HEALTH (Reported) Entered as Reported by STACEY VIGIL on 05/07/17 0900 Chlorpromazine HCl 50 MG TABLET 1 TAB PO BID MENTAL HEALTH (Reported) Entered as Reported by MAKENZIE BOJORQUEZ on 05/31/17 1236 Gabapentin (Neurontin) 400 MG CAPSULE 1 CAP PO TID SEIZURES (Reported) Entered as Reported by STACEY VIGIL on 05/07/17 0858 Lisinopril (Prinivil) 5 MG TABLET 1 TAB PO DAILY BP (Reported) Entered as Reported by CHAKA MISTRY on 11/07/15 1609 Huson Carbonate (Huson Carbonate ER) 450 MG TABLET.ER 1 TAB PO DAILY MENTAL HEALTH (Reported) Entered as Reported by CAROLE ESPOSITO on 05/24/16 0109 Huson Carbonate 300 MG TABLET 600 MG PO QHS MENTAL HEALTH (Reported) Entered as Reported by CAROLE ESPOSITO on 05/24/16 0110 Huson Carbonate 150 MG CAPSULE 1 CAP PO QPM MENTAL HEALTH #30 (Reported) Entered as Reported by MAKENZIE BOJORQUEZ on 05/31/17 1238 Pantoprazole Sodium (Protonix) 40 MG TABLET.DR 1 TAB PO DAILY GERD (Reported) Entered as Reported by STACEY VIGIL on 05/07/17 0857 Prazosin HCl 1 MG CAPSULE 2 CAP PO QPM HTN (Reported) Entered as Reported by CAROLE ESPOSITO on 05/24/16 0111 Simvastatin (Simvastatin*) 10 MG TABLET 1 TAB PO QPM CHOLESTEROL (Reported) Entered as Reported by STACEY VIGIL on 05/07/17 0900 Venlafaxine HCl (Effexor XR) 150 MG CAP.ER.24H 1 CAP PO DAILY MENTAL HEALTH ( Reported) Entered as Reported by STACEY VIGIL on 05/07/17 0858 Scheduled PRN Medications Albuterol Sulfate (Proair Hfa) 90 MCG HFA.AER.AD 2 PUF INH Q4-6 PRN PRN SHORTNESS OF BREATH (Reported) Entered as Reported by MAKENZIE BOJORQUEZ on 05/31/17 1232 Benztropine Mesylate 1 MG TABLET 1 TAB PO BID PRN TREMORS (Reported) Entered as Reported by MAKENZIE BOJORQUEZ on 05/31/17 1233 Chlorpromazine HCl 25 MG TABLET 1 TAB PO Q6P PRN AGITATION (Reported) Entered as Reported by STACEY VIGIL on 05/07/17 0859 Hydroxyzine Pamoate 25 MG CAPSULE 1 CAP PO Q4 HRS NEEDED PRN AGITATION ( Reported) Entered as Reported by MAKENZIE BOJORQUEZ on 05/31/17 1231 Oxycodone HCl/Acetaminophen (Oxycodone-Acetaminophen 5-325) 5 MG-325 MG TABLET 1 TAB PO Q6-8P PRN PAIN #20 (Reported) Entered as Reported by MAKENZIE BOJORQUEZ on 05/31/17 1237 Trazodone HCl 100 MG TABLET 2 TAB PO QPM PRN SLEEP (Reported) Entered as Reported by STACEY VIGIL on 05/07/17 0858 Miscellaneous Medications Insulin Lispro (Humalog) (Unknown Strength) CARTRIDGE (Unknown Dose) DM ( Reported) Entered as Reported by MAKENZIE BOJORQUEZ on 05/31/17 1238 Laboratory Results: Laboratory Tests 05/30/172114: Anion Gap 14, Estimated GFR > 60, BUN/Creatinine Ratio 12.9, Glucose 146 H, Calcium 9.7, Total Bilirubin 0.4, AST 15 L, ALT 30, Alkaline Phosphatase 71, Total Protein 7.1, Albumin 4.4, Globulin 2.7, Albumin/Globulin Ratio 1.6, CBC w Diff NO MAN DIFF REQ, RBC 4.70, MCV 92.3, MCH 30.3, RDW 14.4, MPV 7.7, Gran % 75.1, Lymphocytes % 16.1 L, Monocytes % 6.8, Eosinophils % 1.2, Basophils % 0.8 , Absolute Granulocytes 9.8 H, Absolute Lymphocytes 2.1, Absolute Monocytes 0.9 H, Absolute Eosinophils 0.2, Absolute Basophils 0.1, PUBS MCHC 32.8 L, Huson 1.0, Serum Alcohol 220.0 05/30/172104: Huson Cancelled 05/30/172103: Urine Opiates Screen < 100.00, Methadone Screen < 40, Barbiturate Screen < 60, Ur Phencyclidine Scrn < 6.00, Amphetamines Screen < 100, U Benzodiazepines Scrn < 85, Urine Cocaine Screen < 50, Urine Cannabis Screen < 5.00, Urine Color STRAW , Urine Clarity CLEAR, Urine pH 6.0, Ur Specific [place] <= 1.005, Urine Protein NEG, Urine Ketones NEG, Urine Nitrite NEG, Urine Bilirubin NEG, Urine Urobilinogen 0.2, Ur Leukocyte Esterase NEG, Ur Microscopic EXAM NOT REQUIRED, Urine Hemoglobin NEG, Urine Glucose NEG Past History Past Medical History Neurological: delerium tremens, peripheral neuropathy, seizure (partial complex) , history of withdrawal seizure EENT: NONE Cardiovascular: hypertension, hyperlipidemia Respiratory: asthma, COPD, obstructive sleep apnea Gastrointestinal: GERD Hepatic: cirrhosis, cholecystectomy appendectomy Renal: NONE Musculoskeletal: NONE Psychiatric: alcohol dependence, bipolar disease, History of suicide attempts. Endocrine: diabetes, diabetic ketoacidosis (multiple episodes), hypoglycemia Blood Disorders: NONE Cancer(s): NONE PATIENT RESOURCE SPECIALIST/Reproductive: h/o epid/orchitis Past Surgical History Surgical History: appendectomy, cholecystectomy Psychosocial History Strengths/Capabilities: Pt is able to articulate his wants and needs. Pt is asking for help. Pt identifies as creative. He has supportive services through [facility] and [facility]. Physical Limitations (Interventions): None identified. 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 How much used/taken 1 pint vodka How often Unclear Substance Abuse Treatment Substance Abuse Treatment Past Substance Abuse TX Yes Inpatient Treatment Yes Outpatient Treatment Yes Location of Treatment [facility] Reason for Treatment Alcohol use d/o Dates of Treatment Many admissions in recent years Response to Treatment Improved Current Mental Status Mental Status Orientation: Person, Place, Situation Affect: Constricted, Sad Speech: Soft Neuro-vegetative: Anhedonia, Loss of Interest Appearance Appearance- Dress/Hygiene: Dissheveled Behaviors Thought Process: Thought Blocking Thought Content: Thought Blocking Memory: Impaired Insight: Fair SI/HI Risk Assessment Past Suicidal Ideation/Attempts Yes Current Suicidal Ideation/Att No Past Homicidal Ideation/Att: No Current Homicidal Ideation/Attempts No Danger To: Self Gravely Disabled: Lack of Insight, Poor Impulse Control, Poor Judgment Risk Factors: history of suicide atmpts, SA/MH hospitalized, substance abuse, poor impulse control, male Lethality Ratin PTSD Checklist PTSD Done? patient declined ED Management Sitter: Yes Restraints: No DSM5/PS Stressors/Medical Prob Diagnosis' (DSM 5, Stressors, Medical): F31.9 Bipolar d/o, unspecified F10.20 alcohol use d/o, severe Current GAF: 28 Departure Disposition Psych Medical Clearance Date: 05/31/17 Medically Cleared at: 1215 Time Started: 1215 Time Ended: 1235 Psychiatrist Consulted: Nba LACKEY,Edward Date Disposition Established: 05/31/17 Time Disposition Established: 1245 Plan for Disposition - Modality: Bed Search Rationale for Disposition: The patient has been suicidal since last week, per his case advocate, Kacy, at [facility]. He has a history of suicide attempts by hanging and insulin overdose. His sister has grave concerns for his safety if he is not treated as an inpatient for psychiatry. Type of IP Admission: PEC Referrals VIKASH CORNELIUS APRN (PCP/Family)
--- NOTE | 2017-05-31 20:30 | NUR ---
CHINA VELASQUEZ AWARE OF PT'S FINGERSTICK.
--- NOTE | 2017-05-31 21:07 | NUR ---
NICOTINE PATCH APPLIED TO LEFT DELTOID PER EMAR.
--- NOTE | 2017-06-01 01:23 | NUR ---
PT SLEEPING QUIETLY, EVEN RR NOTED, NO S/S OF WITHDRAWAL NOTED.
--- NOTE | 2017-06-01 05:10 | NUR ---
PT NOTED TO BE SLEEPING ON BED. SITTER IN PLACE. WILL CONTINUE TO MONITOR.
--- NOTE | 2017-06-01 06:45 | NUR ---
PT BS 328. PT MEDICATED WITH INSULIN PER EMAR.
[2017-06-01 06:49] VITALS: BP 130/69
--- NOTE | 2017-06-01 07:43 | NUR ---
REPORT RECEIVED. PT OBSERVED ASLEEP. SITTER IN ATTENDANCE.
--- NOTE | 2017-06-01 08:19 | NUR ---
C/O FEELING SHAKY. MILDLY DIAPHORETIC. NO TREMORS NOTED AT PRESENT. VS STABLE. ACCUCHECK 260. REPORTED TO DR COONEY.
[2017-06-01 08:32] VITALS: BP 119/56
--- NOTE | 2017-06-01 08:48 | NUR ---
ATIVAN GIVEN DIRECTED.
--- NOTE | 2017-06-01 09:27 | NUR ---
NICOTINE PATCH APPLIED TO RT ARM. PATCH ON LT ARM REMOVED.
--- NOTE | 2017-06-01 10:41 | NUR ---
Pt remains on a PEC for inpt psych tx and a bed search is being done. clinical faxed to [facility], [facility], and [facility]
--- NOTE | 2017-06-01 11:53 | NUR ---
PT IS CRYING, SHAKING AND ANXIOUS. REPORTS NOT FEELING WELL WITH NAUSEA CONTINUED. POOR PO INTAKE TODAY. MD NOTIFIED AND PLAN FOR ORDER OF DAILY MEDS.
--- NOTE | 2017-06-01 12:08 | NUR ---
[facility] decined transfer as they no longer have availability
--- NOTE | 2017-06-01 12:36 | NUR ---
MEDICATED WITH DAILY MEDS AND EMOTIONAL SUPPORT PROVIDED
--- NOTE | 2017-06-01 12:55 | NUR ---
[facility] declined pt
--- NOTE | 2017-06-01 14:10 | ED PSYCHIATRIST/APRN CONSULT ---
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 He has remained in ER pending bed, he continues to endorse depression and not feeling safe if he were to return home, he denies acute SI "i just want help" states sleeping okay and compliant with medications that have been restarted w/o SE. He feels hopeless helpless and requesting inpatient hospitalization. his behaviors have been good with no overnight events MSE: CM, ASA laying in bed, cooperative aaox3. poor eye contact. soft slow speech. depressed mood congruent/dyisphoric affect. linear denies acute si/hi or psychosis. i/j limited a/p depressive d/o alcohol use disorder, r/o simd continue bed search for inpatient hospitals continue rx as prescribed
[2017-06-01 16:15] VITALS: BP 118/67
--- NOTE | 2017-06-01 16:15 | NUR ---
WOUND TO SACRAL/COCCYX AREA CLEANED, BACITRACIN APPLIED AND DRESSING APPLIED. TOLERATED WELL. MEDICATED WITH NEURONTINE AND PRN ATARAX PER eMAR FOR ANXIETY AND SHAKINESS. REPORTS FEELING BETTER AFTER RECEIVING DAILY MEDS AND HE WAS ABLE TO ALSO GET SOME REST. OFFERS NO OTHER COMPLAINTS AT THIS TIME. SITTERS REMAIN PRESENT FOR SAFETY
[2017-06-01 20:30] VITALS: BP 123/63
--- NOTE | 2017-06-01 21:51 | NUR ---
drafter civil engineering met with pt. Pt states he takes Trazodone 200 mgs and Thorazine 150mgs at night.
--- NOTE | 2017-06-01 22:33 | NUR ---
PT AWAKEN FOR NIGHT MEDS, MEDICATED PER EMAR. PT OFFERING NO NEEDS AT THIS TIME. SITTER AT DOORWAY.
--- NOTE | 2017-06-02 02:10 | NUR ---
PT NOTED TO BE ASLEEP ON BED. NO DISTRESS NOTED. WILL CONTINUE TO MONITOR.
--- NOTE | 2017-06-02 04:42 | NUR ---
PT CONTINUES TO REST ON BED. NORMAL RISE AND FALL OF CHEST NOTED. SITTER IN PLACE.
--- NOTE | 2017-06-02 06:33 | NUR ---
PT RESTING AWAKE ON BED. PT DENIES ANY COMPLAINTS AT THIS TIME. SITTER REMAINS IN PLACE.
--- NOTE | 2017-06-02 06:41 | NUR ---
PT MEDICATED WITH INSULIN PER EMAR.
--- NOTE | 2017-06-02 06:55 | NUR ---
patient remains sleeping at this time. lights remain dimmed to promote rest and comfort. sitter remains in place for safety and contant observation. will continue to monitor.
--- NOTE | 2017-06-02 07:10 | NUR ---
REPORT GIVEN TO ERIC VASQUEZ.
--- NOTE | 2017-06-02 08:15 | NUR ---
pharm called for meds.
[2017-06-02 08:48] VITALS: BP 127/74
--- NOTE | 2017-06-02 08:49 | NUR ---
PT MEDICATED WITH ATIVAN PO WILL CONT. TO MONITOR
--- NOTE | 2017-06-02 10:08 | NUR ---
PT MEDICATED DIRECTED PT OFFERS NO COMPLAINTS
--- NOTE | 2017-06-02 10:55 | NUR ---
CRISIS IN ROOM FOR EVAL
--- NOTE | 2017-06-02 12:15 | NUR ---
PT IN ROOM WAITING FOR PLACEMENT
[2017-06-02 12:44] VITALS: BP 109/57
--- NOTE | 2017-06-02 13:10 | NUR ---
PT RESTING NO DISTRESS NOTED
--- NOTE | 2017-06-02 14:52 | NUR ---
PT CALM AND COOPERATIVE SITTER AT DOOR
[2017-06-02 15:03] VITALS: BP 112/60
--- NOTE | 2017-06-02 15:14 | ED PSYCHIATRIST/APRN CONSULT ---
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 He still reports depression and anixety but "i feel better and want to leave". He denies si/hi or psychosis. He has been medication compliant w/o SE. he denies cravings urges to drink or any WD sx. CM, ASA, dressed in hospital gown, laying in bed lights off under blankets. + pmr. Guarded, limited eye contact. soft slow speech "im ok" mood incongruent affect dyshphoric affect. linear denies si/hi or psychosis i/j limited A/P pt still requires inpatient hospitalization will continue to look into bed options, he reports improvement in mood past 24 hours and if he is re-evaluated in the morning and appropriate safe dc planning can be made rounding Psychiatrist can explose option to dc home but at this time high risk factors and improvement in mood are subjective and not observable over time.
[2017-06-02 15:30] VITALS: BP 112/60
--- NOTE | 2017-06-02 15:35 | NUR ---
Crisis Note: Pt not accepted at [facility]. At this time there are no other beds available in the state.
--- NOTE | 2017-06-02 16:21 | NUR ---
SACRAL COCCYX WOUND CLEANED AND DRESSED WITH BACITRACIN. BROWN DRAINAGE NOTED TO OLD DRESSING. NO ACTIVE OOZING NOTED ON ASSESSMENT. PT AWARE OF PLAN FOR INSULIN AND NEURONTIN ORDER.
--- NOTE | 2017-06-02 16:31 | NUR ---
MEDICATED PER eMAR
[2017-06-02 17:55] VITALS: BP 114/63
--- NOTE | 2017-06-02 17:55 | NUR ---
PT REMAINS STABLE, ALERT AND SLIGHTLY ANXIOUS BUT MUCH IMPROVED SINCE YESTERDAY. LESS TREMULOUS AND APPETITE IMPROVED. MEDICATED WITH THORAZINE PER eMAR. PLAN FOR PT'S NORMAL DOSE OF 125MG AT BEDTIME
--- NOTE | 2017-06-02 19:26 | NUR ---
PT RESTING ON BED. NO DISTRESS NOTED. SITTER IN PLACE. WILL CONTINUE TO MONITOR.
--- NOTE | 2017-06-02 20:51 | NUR ---
PT RESTING ON BED. NO DISTRESS NOTED. WILL CONTINUE TO MONITOR.
--- NOTE | 2017-06-02 21:32 | NUR ---
PHARMACY CALLED FOR MEDS.
--- NOTE | 2017-06-02 23:58 | NUR ---
PT RESTING ON BED. NO DISTRESS NOTED. SITTER IN PLACE. WILL CONTINUE TO MONITOR.
--- NOTE | 2017-06-03 02:28 | NUR ---
PT SLEEPING ON BED IN ROOM. RR WNL. NO APPARENT DISTRESS NOTED. SITTER PRESENT
--- NOTE | 2017-06-03 04:00 | NUR ---
PT NOTED TO BE ASLEEP ON BED. NORMAL RISE AND FALL OF CHEST NOTED. SITTER REMAINS IN PLACE.
--- NOTE | 2017-06-03 06:04 | NUR ---
PT NOTED TO BE ASLEEP ON BED. NORMAL RISE AND FALL OF CHEST NOTED. SITTER IN PLACE.
--- NOTE | 2017-06-03 07:01 | NUR ---
REPORT GIVEN TO ERIC PALM.
--- NOTE | 2017-06-03 07:09 | NUR ---
ASSUMED CARE, PT AWAKE AND ALERT AT THIS TIME, OFFERS NO COMPLAINTS BUT ASK THIS NURSE IF SHE CAN CHANGE THE DRESSING ON HIS BUTTOCKS AFTER. PT STATES THAT HE HAD AN ABCESS TAKING CARE OF. DENIES PAIN AND REMAINS CALM AND COPERATIVE. PT AWARE THAT CRISIS IS DOING A BED SEARCH.
--- NOTE | 2017-06-03 08:32 | NUR ---
PHARMACY GETTING MEDS READY
--- NOTE | 2017-06-03 08:54 | NUR ---
THIS NURSE SPOKE WITH DR BARTH ABOUT PT HAVING HISTORY OF DIABETES AND USUALLY WEARS AN INSULIN PUMP. PT DOES NOT HAVE PUMP ON AT THIS TIME. FS 329.
--- NOTE | 2017-06-03 09:06 | NUR ---
PT MEDICATED WITH INSULIN PER ORDER
--- NOTE | 2017-06-03 10:40 | NUR ---
PHARMACY PREPARING MEDS
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
--- NOTE | 2017-06-03 11:36 | NUR ---
FS 198 AT THIS TIME , PT PROVIDED WITH FOOD TRAY. DR BARTH AWARE THAT PT HAS NO ORDERS FOR INSULIN EVEN THOUGH PT DOES NOT HAVE INSULIN PUMP ON. PT AWARE THAT HE IS BEING ADMITTED TO [facility] BUT WAITING ON ROOM TO BE READY. FOOD TRAY PROVIDED
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
--- NOTE | 2017-06-03 13:27 | NUR ---
PT ALERT AND ORIENTED CALM AND COPERATIVE AT THIS TIME. DRESSING CHANGED TO WOUND ON PTS COCCYX AREA. PT STATES THAT HE HAD ABCESS DRAINED OVER A MONTH AGO BY DR FREEDMAN AND WOUND IS NOT HEALING WELL, SCANT AMOUNT OF DRAINAGE NOTED ON OLD DRESSING. PT NOTED WITH PIN HOLE OPEN AREA AND ALSO 1 CM AREA THAT PT STATES THAT DR FREEDMAN HAD TO CUT AGAIN TO DRAIN ABCESS.
--- NOTE | 2017-06-03 13:36 | NUR ---
REPORT CALLED TO VINICIO IN [facility]
--- NOTE | 2017-06-03 13:41 | NUR ---
WAITING ON ADMISSION PACKET
--- NOTE | 2017-06-03 14:38 | NUR ---
PT TO UNIT
[2017-06-03 14:51] VITALS: BP 129/69
--- NOTE | 2017-06-03 15:38 | NUR ---
PATIENT ARRIVED ON UNIT AT 1440 WITH CHAIN MAKER AND DIST. PATIENT A/OX3, ORIENTED TO UNIT AND UNIT RULES, CALM AND COOPERATIVE, COMMUNICATION IS ORGANIZED AND CLEAR, DENIES SI/HI/BURNS AT THIS TIME, MOOD APPEARS STABLE WITH FULL RANGE AFFECT.
[2017-06-03 15:48] VITALS: BP 111/75
[2017-06-03 16:05] VITALS: BP 11/75
[2017-06-03 16:08] VITALS: BP 111/75
--- NOTE | 2017-06-03 18:31 | Cons- Endocrinology ---
General Information and HPI Consulting Request Date of Consult: 06/03/17 Requested By: medical team Reason for Consult: Uncontrolled diabetes Source of Information: patient, old records Exam Limitations: poor historian History of Present Illness: This 42-year-old white male has a known history of diabetes mellitus type 1. He recently has been on the insulin pump. Aim to the emergency room because he did not feel well and apparently waited there since last for admission today. Review of the settings in his pump reveals that his basal insulin at midnight is 1.35 units per hour, 4 AM 1.4 units per hour, 10 AM 1.2 units per hour, 2:30 PM 1.0 units per hour, 5 PM 1.2 units per hour his bolus wizard is set at 1 unit for 9 g of carbohydrate and 1 unit for 30 points of glucose with a target of 110-120. The patient came to the emergency room because of suicidal thoughts and depression. He also had drunk at least 1 pint of alcohol. He had a prolonged hospital stay at [facility] from May 2016 to February 2017 before returning home this last time. His diabetes is usually managed in [place] but he did make an appointment with Dr. Jonse but wound up in the emergency room and could not keep that appointment. While in the ER the patient apparently was on the pump but received some extra regular insulin. His sugars were in the mid 300s. When I was first called this afternoon at about 3:30 PM we gave him 10 units of Levemir because the pump had to be stopped according to hospital policy. His sugar at that time was only one 166 and the patient had received 5 units of regular insulin around noontime while in the ER.. When the sugar was checked before dinner it was 396. We gave him 10 units of NovoLog at 5 PM. The patient did eat dinner tonight. . Allergies/Medications Allergies: Coded Allergies: quetiapine (Severe, THROAT CLOSES...SEROQUEL 05/06/17) perphenazine (Mild, ANXIETY...TRILAFON 05/06/17) clozapine (From CLOZARIL) (SEIZURES 05/06/17) Home Med List: Albuterol Sulfate (Proair Hfa) 90 MCG HFA.AER.AD 2 PUF INH Q4-6 PRN PRN SHORTNESS OF BREATH (Reported) Aspirin (Ecotrin*) 81 MG TABLET.DR 1 TAB PO DAILY HEART HEALTH (Reported) Benztropine Mesylate 1 MG TABLET 1 TAB PO BID PRN TREMORS (Reported) Chlorpromazine HCl 25 MG TABLET 1 TAB PO Q6 PRN AGITATION (Reported) Chlorpromazine HCl 25 MG TABLET 5 TAB PO QPM MENTAL HEALTH (Reported) Chlorpromazine HCl 50 MG TABLET 1 TAB PO BID MENTAL HEALTH (Reported) Gabapentin (Neurontin) 400 MG CAPSULE 1 CAP PO TID SEIZURES (Reported) Hydroxyzine Pamoate 25 MG CAPSULE 1 CAP PO Q4 HRS NEEDED PRN AGITATION ( Reported) Insulin Lispro (Humalog) (Unknown Strength) CARTRIDGE (Unknown Dose) DM ( Reported) Lisinopril (Prinivil) 5 MG TABLET 1 TAB PO DAILY BP (Reported) [place] Carbonate ([place] Carbonate ER) 450 MG TABLET.ER 1 TAB PO DAILY MENTAL HEALTH (Reported) [place] Carbonate 300 MG TABLET 600 MG PO QHS MENTAL HEALTH (Reported) [place] Carbonate 150 MG CAPSULE 1 CAP PO QPM MENTAL HEALTH (Reported) Pantoprazole Sodium (Protonix) 40 MG TABLET.DR 1 TAB PO DAILY GERD (Reported) Prazosin HCl 1 MG CAPSULE 2 CAP PO QPM PTSD NIGHTMARES (Reported) Simvastatin (Simvastatin*) 10 MG TABLET 1 TAB PO QPM CHOLESTEROL (Reported) Trazodone HCl 100 MG TABLET 2 TAB PO QPM PRN SLEEP (Reported) Venlafaxine HCl (Effexor XR) 150 MG CAP.ER.24H 1 CAP PO DAILY MENTAL HEALTH ( Reported) Review of Systems Review of Systems Constitutional: Denies: chills, fever. Cardiovascular: Denies: chest pain. Respiratory: Denies: short of breath. Genitourinary: Denies: no symptoms. Skin: Reports: no symptoms. Neurological/Psychological: Reports: depressed, numbness. Denies: weakness. Hematologic/Endocrine: Reports: polyuria, polydipsia. Denies: bleeding. Past History Travel History Traveled to [place] past 21 day No Medical History Neurological: delerium tremens, peripheral neuropathy, seizure (partial complex) , history of withdrawal EENT: NONE Cardiovascular: hypertension, hyperlipidemia Respiratory: asthma, COPD, obstructive sleep apnea Gastrointestinal: GERD Hepatic: cirrhosis, cholecystectomy appendectomy Renal: NONE Musculoskeletal: NONE Psychiatric: alcohol dependence, bipolar disease, History of suicide attempts. 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 child Services at Home: None Primary Language: Estonian ETOH Use: occasional use Illicit Drug Use: PCP Living Will? unknown Power of Counselor Aide/HCP? unknown Functional Ability ADLs Independent: dressing, eating, toileting, bathing. Ambulation: independent IADLs Independent: shopping, housework, finances, food prep, telephone, transportation , medication admin. 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 Exam & Diagnostic Data Last 24 Hrs of Vital Signs/I&O Vital Signs Date Time Temp Pulse Resp B/P B/P Pulse O2 O2 Flow FiO2 Mean Ox Delivery Rate 06/03 1608 100 111/75 06/03 1605 100 11/06/03 1548 100 111/75 06/03 1451 98.5 93 129/69 06/03 1451 98.2 93 129/69 06/03 1327 97.1 76 16 120/74 98 Room Air 06/03 1057 97.3 78 18 136/78 06/03 0930 97.0 76 16 120/70 95 Room Air 06/03 0710 97.1 90 16 117/68 94 Room Air 06/03 0626 96.9 83 18 133/72 94 Room Air 06/03 0216 96.5 69 16 118/69 94 Room Air 06/02 2251 103 06/02 2228 97.8 103 18 122/69 97 Room Air 06/02 1939 97.3 96 18 109/65 97 Room Air Intake & Output 06/03 1600 06/03 0800 06/03 0000 Intake Total Output Total Balance Patient 210 lb Weight Physical Exam General Appearance: no apparent distress, alert, awake Head: normal appearance Eyes: Bilateral: normal appearance. Neck: normal inspection Respiratory: normal breath sounds Cardiovascular: regular rate/rhythm Gastrointestinal: normal bowel sounds, soft Extremities: normal inspection Assessment/Plan Assessment/Plan This 42-year-old male has a known history of diabetes type 1. Unfortunately he suffers from depression and alcohol abuse. He came to emergency room because of suicidal thoughts. He was on the insulin pump prior to admission but this is had to be discontinued he causes of hospital policy. We will place him on subcutaneous insulin. The patient has received 10 units of Levemir this afternoon and 10 units of NovoLog before dinner. Check his sugar at 10 PM and give some additional NovoLog. Suggest that the patient be placed on Levemir 14 units twice a day. In addition we will place him on sliding scale NovoLog before meals. Sliding-scale NovoLog before meals should be 80-150 give 6 units NovoLog, 151-200 give 8 units NovoLog , 201-250 give 10 units NovoLog, 251-300 give 11 units NovoLog, 301-350 give 12 units NovoLog, 351-400 give 13 units NovoLog. A separate bedtime sliding-scale NovoLog should be written sliding-scale NovoLog at bedtime should be less than 250 give no insulin, 251-300 give 2 units NovoLog , 301-350 give 3 units NovoLog, 351-400 give 4 units NovoLog. Consult Acknowledgment - Thank you for your consult request.
[2017-06-03 19:54] VITALS: BP 128/67
--- NOTE | 2017-06-03 21:02 | NUR ---
PT DENIES SI AND AGREES TO BE SAFE ON THE UNIT. PT HAS BEEN QUIET AND IN THE [facility] [place] [facility]. HE DENIES HI, AH, OR VH.
[2017-06-04] VITALS (9 sets, daily range): BP systolic 104–149; BP diastolic 56–77
--- NOTE | 2017-06-04 07:37 | NUR ---
PT ADMITTED ON A PEC FOR DEPRESSIVE AND SUICIDAL IDEATION. PT IS A DIABETIC. HE HAD HIS INSULIN PUMP REMOVED DUE TO SELF-HARM CONCERNS. PT HAS BEEN ABUSING ALCOHOL- BAL WAS 221. PT HAS A HEALING WOUND ON HIS COCCYX THAT NEEDS TO BE CHANGED. PT SLEPT.
--- NOTE | 2017-06-04 09:01 | Cons- Medical ---
General Information and HPI Consulting Request Date of Consult: 06/03/17 Requested By: CURTIS LACKEY,JOVAN Munroe Reason for Consult: Medical H&P Source of Information: patient, old records Exam Limitations: no limitations History of Present Illness: 42-year-old male well known to me from previous admissions. He has a past medical history of diabetes type 1 managed with an insulin pump, alcohol dependence with a history of alcohol withdrawal seizures, depression with previous suicidality, hypertension and cirrhosis with bipolar disorder. He is here with alcohol abuse and acute suicidal symptoms. His insulin pump was discontinued in the ER and he was seen by endocrinology and started on long- acting insulin. He says that he's had a pilonidal cyst operated on by Dr. Mcqueen at the end of April but he continues to have discomfort and pain with ongoing oozing and drainage from the area. He denies chest pain nausea vomiting shortness of breath or any other complaints. Allergies/Medications Allergies: Coded Allergies: quetiapine (Severe, THROAT CLOSES...SEROQUEL 05/06/17) perphenazine (Mild, ANXIETY...TRILAFON 05/06/17) clozapine (From CLOZARIL) (SEIZURES 05/06/17) Home Med List: Albuterol Sulfate (Proair Hfa) 90 MCG HFA.AER.AD 2 PUF INH Q4-6 PRN PRN SHORTNESS OF BREATH (Reported) Aspirin (Ecotrin*) 81 MG TABLET.DR 1 TAB PO DAILY HEART HEALTH (Reported) Benztropine Mesylate 1 MG TABLET 1 TAB PO BID PRN TREMORS (Reported) Chlorpromazine HCl 25 MG TABLET 1 TAB PO Q6 PRN AGITATION (Reported) Chlorpromazine HCl 25 MG TABLET 5 TAB PO QPM MENTAL HEALTH (Reported) Chlorpromazine HCl 50 MG TABLET 1 TAB PO BID MENTAL HEALTH (Reported) Gabapentin (Neurontin) 400 MG CAPSULE 1 CAP PO TID SEIZURES (Reported) Hydroxyzine Pamoate 25 MG CAPSULE 1 CAP PO Q4 HRS NEEDED PRN AGITATION ( Reported) Insulin Lispro (Humalog) (Unknown Strength) CARTRIDGE (Unknown Dose) DM ( Reported) Lisinopril (Prinivil) 5 MG TABLET 1 TAB PO DAILY BP (Reported) [place] Carbonate ([place] Carbonate ER) 450 MG TABLET.ER 1 TAB PO DAILY MENTAL HEALTH (Reported) [place] Carbonate 300 MG TABLET 600 MG PO QHS MENTAL HEALTH (Reported) [place] Carbonate 150 MG CAPSULE 1 CAP PO QPM MENTAL HEALTH (Reported) Pantoprazole Sodium (Protonix) 40 MG TABLET.DR 1 TAB PO DAILY GERD (Reported) Prazosin HCl 1 MG CAPSULE 2 CAP PO QPM PTSD NIGHTMARES (Reported) Simvastatin (Simvastatin*) 10 MG TABLET 1 TAB PO QPM CHOLESTEROL (Reported) Trazodone HCl 100 MG TABLET 2 TAB PO QPM PRN SLEEP (Reported) Venlafaxine HCl (Effexor XR) 150 MG CAP.ER.24H 1 CAP PO DAILY MENTAL HEALTH ( Reported) Current Medications: Current Medications Sig/Dariusz Start time Last Medication Dose Route Stop Time Status Admin Aspirin Buffered 81 MG DAILY 06/01 1153 06/04 PO 0829 Atorvastatin Calcium 10 MG QPM 06/03 2200 06/03 PO 2155 Atorvastatin Calcium 10 MG QPM 06/01 2200 IN 06/02 PO 2214 Benztropine Mesylate 1 MG BID PRN 06/01 1200 06/01 PO 1236 Chlorpromazine 125 MG QPM 06/02 2200 06/03 PO 2204 Chlorpromazine 50 MG 0800,1700 06/02 1700 06/04 PO 0829 Chlorpromazine 25 MG Q6P PRN 06/01 1200 AC PO Gabapentin 400 MG TID 06/01 1154 06/04 PO 0829 Hydroxyzine HCl 25 MG Q4-6 PRN PRN 06/01 1200 AC 06/01 PO 1615 Insulin Aspart 0 AC & AT BEDTIME 06/03 2200 06/04 SC 08 Insulin Aspart 6 UNITS ONCE ONE 06/03 2045 IN 06/03 OR 06/03 2046 1905 Insulin Aspart 10 UNITS ONCE ONE 06/03 1700 IN 06/03 OR 06/03 1701 1702 Insulin Detemir 14 UNITS BID 06/04 1000 AC SC Insulin Detemir 6 UNITS ONCE ONE 06/03 2200 IN 06/03 OR 06/03 2201 215 Insulin Detemir 10 UNITS ONCE ONE 06/03 1615 IN 06/03 OR 06/03 1616 1702 Lisinopril 5 MG DAILY 06/01 1154 06/04 PO 0829 [place] Carbonate 450 MG DAILY 06/02 1000 AC 06/04 PO 0829 [place] Carbonate 150 MG QPM 06/01 2200 AC 06/03 PO 2155 Lorazepam 2 MG Q2P PRN 06/02 0845 AC 06/02 PO 0847 Lorazepam 1 MG Q2P PRN 06/02 0845 AC PO Nicotine 0 .STK-MED ONE 06/03 1106 DC TOP Nicotine 14 MG DAILY 05/31 2048 AC 06/04 TOP 0828 Prazosin HCl 2 MG QPM 06/03 2200 AC 06/03 PO 2155 Prazosin HCl 2 MG QPM 06/01 2200 DC 06/02 PO 2251 Trazodone HCl 200 MG .STK-MED ONE 06/03 2207 DC PO 06/03 2208 Trazodone HCl 200 MG QPM PRN 06/01 1200 AC 06/03 PO 220 Venlafaxine HCl 150 MG 0800 06/01 1200 AC 06/04 PO 0828 Review of Systems Review of Systems Constitutional: Denies: no symptoms, chills, diaphoresis, fever. Cardiovascular: Denies: no symptoms, chest pain, edema. Respiratory: Denies: no symptoms, cough, hemoptysis. GI: Denies: no symptoms, abdominal pain, bloating. Genitourinary: Denies: no symptoms, dysuria, frequency. All Other Systems: Reviewed and Negative Past History Travel History Traveled to [place] past 21 day No Medical History Neurological: delerium tremens, peripheral neuropathy, seizure (partial complex) , history of withdrawal EENT: NONE Cardiovascular: hypertension, hyperlipidemia Respiratory: asthma, COPD, obstructive sleep apnea Gastrointestinal: GERD Hepatic: cirrhosis, cholecystectomy appendectomy Renal: NONE Musculoskeletal: NONE Psychiatric: alcohol dependence, bipolar disease, History of suicide attempts. 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 child Services at Home: None Primary Language: Sami ETOH Use: occasional use Illicit Drug Use: PCP Living Will? unknown Power of Cook Fishing Vessel/HCP? unknown Functional Ability ADLs Independent: dressing, eating, toileting, bathing. Ambulation: independent IADLs Independent: shopping, housework, finances, food prep, telephone, transportation , medication admin. 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 Exam & Diagnostic Data Last 24 Hrs of Vital Signs/I&O Vital Signs Date Time Temp Pulse Resp B/P B/P Pulse O2 O2 Flow FiO2 Mean Ox Delivery Rate 06/04 0829 95.7 92 16 104/64 06/04 0827 95.7 92 104/64 06/03 2155 97.6 98 16 128/67 06/03 1954 97.6 98 128/06/03 1608 100 111/06/03 1605 100 06/03 1548 100 111/06/03 1451 98.5 93 129/69 06/03 1451 98.2 93 129/69 06/03 1327 97.1 76 16 120/74 98 Room Air 06/03 1057 97.3 78 18 136/78 06/03 0930 97.0 76 16 120/70 95 Room Air Intake & Output 06/04 1600 06/04 0800 06/04 0000 Intake Total Output Total Balance Patient 141 lb Weight Physical Exam General Appearance: well developed/nourished, no apparent distress, alert, awake Head: atraumatic, normal appearance Eyes: Bilateral: normal appearance, PERRL, EOMI. Ears, Nose, Throat: normal pharynx, normal ENT inspection Neck: normal inspection, supple, full range of motion Respiratory: normal breath sounds, chest non-tender, no respiratory distress Cardiovascular: regular rate/rhythm Gastrointestinal: normal bowel sounds, soft, non-tender, no organomegaly Rectal: normal exam (area over coocyx bandaged with) Back: normal inspection, normal range of motion Neurologic/Psych: no motor/sensory deficits, awake, alert, oriented x 3 Other Physical Findings: Has a flat affect. Otherwise he is awake alert, cranial nerves III-12 are grossly intact, reflexes are 2+ and symmetric and there is no obvious motor or sensory deficit. Last 24 Hrs of Labs/Juanjose: Vital Signs Date Time Temp Pulse Resp B/P B/P Pulse O2 O2 Flow FiO2 Mean Ox Delivery Rate 06/04 0829 95.7 92 16 104/64 06/04 0827 95.7 92 104/64 06/03 2155 97.6 98 16 128/67 06/03 1954 97.6 98 128/67 06/03 1608 100 111/75 07/24 1605 100 11/75 06/03 1548 100 111/75 06/03 1451 98.5 93 129/69 06/03 1451 98.2 93 129/69 0724 1327 97.1 76 16 120/74 98 Room Air 07 1057 97.3 78 18 136/78 06/03 0930 97.0 76 16 120/70 95 Room Air 06/03 0710 97.1 90 16 117/68 94 Room Air 06/03 0626 96.9 83 18 133/72 94 Room Air 06/03 0216 96.5 69 16 118/69 94 Room Air 06/02 2251 103 07 2228 97.8 103 18 122/69 97 Room Air 06/02 1939 97.3 96 18 109/65 97 Room Air 06/02 1755 97.5 89 16 114/63 07 1727 97.5 89 18 114/63 95 Room Air 06/02 1645 Room Air 06/02 1530 98.8 88 18 112/60 07 1503 98.8 95 18 112/60 06/02 1418 98.8 95 18 112/60 96 Room Air 06/02 1244 98.8 96 18 109/57 07 1237 98.8 96 18 109/57 95 Room Air 06/02 1054 98.4 111 16 116/70 95 Room Air 06/02 1005 98.4 113 18 127/74 06/02 0848 98.4 113 18 127/74 06/02 0843 98.4 113 18 127/74 99 Room Air 06/02 0636 97.4 102 18 136/54 97 Room Air 06/01 2345 98.3 86 18 122/64 98 Room Air 06/01 2232 99.0 84 20 123/63 07 1829 99.0 84 20 123/63 100 Room Air 06/01 1615 90 18 118/67 07 1534 98.7 90 22 118/57 98 Room Air 07 1345 Room Air 06/01 1309 98.1 89 18 140/85 98 07/22 1236 82 120/66 07/ 0940 99.8 82 18 120/66 99 07/22 0932 97.8 89 20 136/74 98 Room Air 06/01 0832 96.9 80 20 119/56 07 0821 96.9 80 20 119/56 98 Room Air 06/01 0649 96.8 85 20 130/69 07/22 0633 96.8 86 20 130/69 98 Room Air 06/01 0123 96.8 82 18 138/72 97 Room Air 05/31 2123 96.4 77 18 124/68 95 Room Air 05/31 1400 98.4 86 15 136/64 / 1400 98.4 93 15 136/75 97 Room Air Room Air 05/31 1210 98.0 78 18 138/82 97 Room Air Room Air 05/31 1200 98.0 78 18 138/82 / 0705 97.2 86 18 138/64 05/31 0630 97.2 86 18 138/64 97 Room Air 05/31 0042 96.7 83 16 111/59 94 Room Air 05/30 2240 98.0 84 16 142/76 95 Room Air 05/30 2049 98.7 96 18 140/67 97 Room Air Orders Procedure Date/time Status Consistent Carbohydrate 1 06/04 B Active Regular Diet 06/03 D Complete Patient Data - inpatient psych 06/03 1457 Active Admit to inpatient psych 06/03 1457 Active Vital Signs 06/03 1345 Active Inpt Psych Teach/Educate 06/03 1345 Active Nutritional Intake, Monitor 06/03 1345 Active Inpt Psych Auricular Acupunctu 06/03 1345 Active Admit to inpatient psych 06/03 1317 Active Activity/Ambulation 06/03 UNK Active Continuous Observation Monitor 06/02 1900 Complete Continuous Observation Monitor 06/02 1500 Complete Continuous Observation Monitor 06/02 1100 Complete Continuous Observation Monitor 06/02 0700 Complete Continuous Observation Monitor 06/01 1900 Complete Continuous Observation Monitor 06/01 1500 Complete Continuous Observation Monitor 06/01 1100 Complete Continuous Observation Monitor 06/01 0700 Complete CIWA 05/31 0705 Active FingerStick- Glucose 05/30 2246 Active Intake & Output 05/302 Complete Assessment/Plan Assessment/Plan 42 year old withMultiple medical problems including diabetes, hypertension, alcohol and cirrhosis was here with depression, suicidality and ongoing alcohol use. At this point treatment will be as per psychiatry. He was already seen by Dr. Martin and changed from his insulin pump to long-acting insulin with NovoLog coverage for meals. We continued his lisinopril and his alpha oh. Continued his PPI. I think he needs to be seen by the surgical service given the ongoing drainage and discomfort he has at pilonidal cyst surgery area. Will watch his sugars and follow closely. Problem List: 1. Alcohol abuse 2. CHRONIC LIVER DISEASE 3. H/O [id number] 4. SUICIDAL IDEATION 5. Hypertension Consult Acknowledgment - Thank you for your consult request.
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
--- NOTE | 2017-06-04 14:12 | SOCIAL WORKER TX PLAN PSYCH ---
Treatment Plan - Please Document: - Evidence that there is ongoing collaboration between - the patient and the interdisciplinary team, - including the patient's active participation and - responsibility for engaging in the treatment regimen, - and that the treatment plan is individualized and - relevant to the patient's conditions. - Treatment plan should reflect documentation indicating - that all active therapeutic efforts are included. Strengths/Capabilities: Pt is able to articulate his wants and needs. Pt is asking for help. Pt identifies as creative. He has supportive services through [facility] and [facility]. Physical Limitations (Interventions): None identified. "a little wobbly on feet" DSM5/PS Stressors/Medical Prob Diagnosis' (DSM 5, Stressors, Medical): F31.9 Bipolar d/o, unspecified F10.20 alcohol use d/o, severe Current GAF: 25 Treatment Team - Responsibilities of members of the treatment team include: - Medication Management- MD or SECURITY TEST ENGINEER - Medication Administration and Monitoring- Nurse - Group Therapy- Occupational Therapist - 1:1 Therapy,Disch Planning,family involvement-Sole Blacker
--- NOTE | 2017-06-04 14:12 | SOCIAL WORKER PROG NOTE PSYCH ---
Social Work Progress Note Progress Note Chivo shared that he left [facility] in March. [facility] Since leaving [facility] he reports things were going okay. He has been in IOP with [facility]. Initially the dual IOP and then recently changed to symptom management. He spoke with Kacy Stoll from [facility] today and she stated they are holding his spot. I will speak with [facility] further tomorrow. He shared that this was not his first relapse since March, but the most significant one. He said he had a couple of small slips. This time around he was waiting for a bean picker from [facility] and got frustrated and went to the store and bought a pint of vodka. When he returned home he had an argument with his daughter and daughter's Mother. He got upset and then grabbed a dull knife and attempted to cut his wrist. He reported this was not a suicide attempt and that he feels these actions were due to drinking. He then called [facility] mobile crisis. He didn't feel he needed to be admitted to the hospital, thus a PEC was done. He signed in voluntarily today. Talked about a possible family meeting. He doesn't think his sister will come in because she usually doesn't get involved. I asked about his daughter Pina? He said he'll ask her. Chivo is hoping to resume IOP with [facility] when he leaves.
--- NOTE | 2017-06-04 14:13 | PN- Diabetes ---
Assessment/Plan Assessment: Patient feels about the same. He was started on Levemir 14 units twice a day and had the first dose last night. In addition he is on NovoLog sliding scale. However his sugars have been running high. The retina high 300s. The patient states he is eating his meals but is not eating a lot of snacks on junk food in between his meals. Plan: Suggest that we increase his insulin. We will increase to Levemir to 18 units twice a day and also increased her sliding scale NovoLog. Subjective Subjective: Feels about the same Review of Systems Constitutional: Denies: chills, fever. Cardiovascular: Denies: chest pain. Respiratory: Denies: cough, short of breath. Gastrointestinal: Denies: abdominal pain, nausea, vomiting. Musculoskeletal: Denies: joint pain. Objective Last 24 Hrs of Vital Signs/I&O Vital Signs Date Time Temp Pulse Resp B/P B/P Pulse O2 O2 Flow FiO2 Mean Ox Delivery Rate 06/04 1239 86 149/77 06/04 1235 86 149/77 06/04 0829 95.7 92 16 104/64 06/04 0827 95.7 92 104/64 06/04 0800 93 109/69 06/03 2155 97.6 98 16 128/67 06/03 1954 97.6 98 128/67 06/03 1608 100 111/75 06/03 1605 100 1106/03 1548 100 111/75 06/03 1451 98.5 93 129/69 06/03 1451 98.2 93 129/69 Intake & Output 06/04 1600 06/04 0800 06/04 0000 Intake Total Output Total Balance Patient 141 lb Weight Vital Signs Date Time Temp Pulse Resp B/P B/P Pulse O2 O2 Flow FiO2 Mean Ox Delivery Rate 06/04 1239 86 149/77 06/04 1235 86 149/77 06/04 0829 95.7 92 16 104/64 06/04 0827 95.7 92 104/64 06/04 0800 93 109/69 06/03 2155 97.6 98 16 128/67 06/03 1954 97.6 98 128/67 06/03 1608 100 111/75 06/03 1605 100 11/06/03 1548 100 111/75 06/03 1451 98.5 93 129/69 06/03 1451 98.2 93 129/69 Intake & Output 06/04 1600 06/04 0800 06/04 0000 Intake Total Output Total Balance Patient 141 lb Weight Physical Exam General Appearance: alert, awake, obese Head: normal appearance Neck: normal inspection Respiratory: normal breath sounds Abdomen: normal bowel sounds, soft Current Medications: Current Medications Sig/Dariusz Start time Last Medication Dose Route Stop Time Status Admin Albuterol Sulfate 2 PUF Q4-6 PRN PRN 06/04 1400 AC INH Aspirin Buffered 81 MG DAILY 06/01 1153 AC 06/04 PO 0829 Atorvastatin Calcium 10 MG QPM 06/03 2200 AC 06/03 PO 2155 Benztropine Mesylate 1 MG BID PRN 06/01 1200 AC 06/01 PO 1236 Chlorpromazine 125 MG QPM 06/02 2200 AC 06/03 PO 2204 Chlorpromazine 50 MG 0800,1700 06/02 1700 AC 06/04 PO 0829 Chlorpromazine 25 MG Q6P PRN 06/01 1200 AC PO Gabapentin 400 MG TID 06/01 1154 06/04 PO 0829 Hydroxyzine HCl 25 MG Q4-6 PRN PRN 06/01 1200 AC 06/01 PO 1615 Insulin Aspart 0 AC & AT BEDTIME 06/03 2200 06/04 CO 1226 Insulin Aspart 6 UNITS ONCE ONE 06/03 2045 MO 06/03 CO 06/03 2046 1905 Insulin Aspart 10 UNITS ONCE ONE 06/03 1700 MO 06/03 CO 06/03 1701 1702 Insulin Detemir 14 UNITS BID 06/04 1000 AC 06/04 CO 1009 Insulin Detemir 6 UNITS ONCE ONE 06/03 2200 MO 06/03 CO 06/03 2201 2152 Insulin Detemir 10 UNITS ONCE ONE 06/03 1615 MO 06/03 CO 06/03 1616 1702 Lisinopril 5 MG DAILY 06/01 1154 AC 06/04 PO 0829 [place] Carbonate 450 MG DAILY 06/02 1000 AC 06/04 PO 0829 [place] Carbonate 150 MG QPM 06/01 2200 AC 06/03 PO 2155 Lorazepam 2 MG Q2P PRN 06/02 0845 AC 06/02 PO 0847 Lorazepam 1 MG Q2P PRN 06/02 0845 AC PO Nicotine 2 MG Q2 HRS NEEDED PRN 06/04 0945 AC 06/04 PO 1227 Nicotine 14 MG DAILY 05/31 2048 06/04 TOP 0828 Omeprazole 20 MG DAILY 06/04 1349 AC PO Prazosin HCl 2 MG QPM 06/03 2200 AC 06/03 PO 215 Prazosin HCl 2 MG QPM 06/01 220 DC 06/02 PO 225 Trazodone HCl 200 MG .STK-MED ONE 06/03 2207 DC PO 06/03 2208 Trazodone HCl 200 MG QPM PRN 06/01 1200 AC 06/03 PO 2206 Venlafaxine HCl 150 MG 0800 06/01 1200 06/04 PO 0828
--- NOTE | 2017-06-04 14:21 | NUR ---
PT IS STABLE WITH FULL RANGE OF AFFECT. PT HAS BEEN INTERMITTENTLY ATTENDING GROUPS THIS AM. HE HAS BEEN OUT IN THE COMMUNITY AND MINIMALLY INTERACTING WITH PEERS/STAFF MEMBERS. PT KEEPS CALLING FAMILY MEMBERS AND REQUESTING THEY BRING CLOTHES, DAUGHTER HAS DROPPED OFF CLOTHING X3 DIFFERENT TIMES TODAY. PT IS PLEASANT AND COOPERATIVE. VS ARE STABLE, NOT SCORING ON CIWA, DENIES ANY SI/HI TO THIS MHW.
--- NOTE | 2017-06-04 22:34 | NUR ---
PT VISIBLE IN THE [place] THROUGHOUT THE EVENING. PT HAS BEEN IN THE LOUNGE WATCHING TELEVISION WITH HIS PEERS, AND GOING TO WRAP UP GROUP. HE HAS BEEN PLEASANT AND COOPERATIVE, DENIES THOUGHTS TO HURT HIMSELF WHEN ASKED.
[2017-06-05] VITALS (9 sets, daily range): BP systolic 114–145; BP diastolic 53–72
[2017-06-05 07:46] LABS: LITHIUM 0.9 mmol/L (0.6-1.2)
--- NOTE | 2017-06-05 10:53 | SOCIAL WORKER PROG NOTE PSYCH ---
Social Work Progress Note Progress Note [facility] reported that Chivo can return to the [facility] with Kacy Stoll. If he leaves Saturday, group is from 1-4pm that day. His prescriber appt. is 06/13 at 4pm. Gave hCivo some information on [facility] [employer] as an option for transportation. He had a visit from his shoe caser at [facility] today. Said things were going well. Set up [employer] transportation for Saturday discharge. P/U at 11:30am and bringing him to [facility].
--- NOTE | 2017-06-05 11:07 | SOCIAL WORKER PROG NOTE PSYCH ---
Social Work Progress Note Progress Note Met with Chivo this morning, he was in group. He stated he is feeling "fine", denies SI/HI, no psychosis. He stated he slept well, rates his anxiety 10/10 and depression 0/10. I spoke with [facility] (Shelly Baltazar back tomorrow 06/06), who stated she heard from Chivo's sister, Gabriela, that he may not be able to return home (this was while Chivo was in the ED). [facility] confirmed that Chivo can return to [facility] - mental health program, (1pm-4pm 3x per week), they will "hold his spot" in the program. They were made aware he is expected to discharge this week. Chivo identified that trigger was "boredom, and having money on hand." He stated he wants to leave his money at home, to prevent relapse. Néstor Mena, skilled nursing case manager from [facility] came today to meet with Chiov. Informed him of plan and issues with insurance. Chivo plans to call DSS, while on unit. Chivo stated he never heard that there was an issue regarding returning home. Chivo stated he will call his sister, Gabriela [place] at around 7pm, when she gets out of work to check in with her. His 20yo daughter, Dianelys has visited him on the unit, and didn't report any issues regarding returning home. Chivo expressed concern about his Husky, that Dianelys needs to submit some documents in order to keep her Husky. Chivo stated he is concerned if she doesn 't do this he is concerned he may lose his insurance as well. Encouraged Chivo to call DSS to explore this further. Chivo did sign a release for [place] , and Dianelys (daughter) .
--- NOTE | 2017-06-05 12:07 | NUR ---
PT HAS BEEN CALM AND COOPERATIVE WITH STAFF AND UNIT ROUTINE. HE IS ATTENDING GROUPS AND VERBALIZING HIS CONCERNS AND FEELINGS APPROPRIATELY. HE DENIES ANY THOUGHTS OF SUICIDE OR SELF HARM AT THIS TIME.HE IS COMPLIANT WITH HIS MED REGIME AND STATED HE THINKS HE WOULD BENEFIT FROM GOING TO IOP UPON DISCHARGE
--- NOTE | 2017-06-05 13:44 | CP SOUTH PROGRESS NOTE PSYCH ---
Psych (Inpt) Progress Note Progress Note Include the following elements, when applicable: Involvement in the active treatment of the patient with behavioral observations of the patient and the patient's response to the treatment. Review of the ongoing treatment process in the context of the treatment plan. Indication of how multi-disciplinary staff members are carrying out the treatment plan. Plans for future interventions and recommendations for revision of the treatment plan. Liaison with other physicians/providers. Progress Note: I discussed this patient's progress to date, current mental status, treatment process in the context of the treatment plan, and discharge planning with staff/ team in the daily morning inpatient team meeting. I also met with the patient myself in individual session. Current Medications Sig/Dariusz Start time Last Medication Dose Route Stop Time Status Admin Albuterol Sulfate 2 PUF Q4-6 PRN PRN 06/04 1400 AC INH Aspirin Buffered 81 MG DAILY 06/01 1153 AC 06/05 PO 0820 Atorvastatin Calcium 10 MG QPM 06/03 2200 AC 06/04 PO 2246 Benztropine Mesylate 1 MG BID PRN 06/01 1200 AC 06/01 PO 1236 Chlorpromazine 125 MG QPM 06/02 2200 AC 06/04 PO 2305 Chlorpromazine 50 MG 0800,1700 06/02 1700 AC 06/05 PO 1120 Chlorpromazine 25 MG Q6P PRN 06/01 1200 AC PO Gabapentin 400 MG TID 06/01 1154 AC 06/05 PO 0820 Hydroxyzine HCl 25 MG Q4-6 PRN PRN 06/01 1200 AC 06/01 PO 1615 Insulin Aspart 0 AC & AT BEDTIME 06/03 2200 AC 06/05 SC 1227 Insulin Detemir 18 UNITS BID 06/04 2200 AC 06/05 SC 1050 Insulin Detemir 14 UNITS BID 06/04 1000 DC 06/04 SC 1009 Lisinopril 5 MG DAILY 06/01 1154 AC 06/05 PO 0820 [place] Carbonate 600 MG QPM 06/04 2200 AC 06/04 PO 2246 [place] Carbonate 450 MG DAILY 06/02 1000 AC 06/05 PO 0820 [place] Carbonate 150 MG QPM 06/01 2200 AC 06/04 PO 2246 Lorazepam 2 MG Q2P PRN 06/02 0845 AC 06/02 PO 0847 Lorazepam 1 MG Q2P PRN 06/02 0845 AC PO Nicotine 2 MG Q2 HRS NEEDED PRN 06/04 0945 AC 06/05 PO 1254 Nicotine 14 MG DAILY 05/31 2048 AC 06/05 TOP 1120 Omeprazole 20 MG DAILY AC 06/04 1349 AC 06/05 PO 0640 Prazosin HCl 2 MG QPM 06/03 2200 AC 06/04 PO 2246 Trazodone HCl 200 MG .STK-MED ONE 06/04 2307 DC PO 06/04 2308 Trazodone HCl 200 MG QPM PRN 06/01 1200 AC 06/04 PO 2306 Venlafaxine HCl 225 MG 0800 06/05 0800 AC 06/05 PO 0820 Venlafaxine HCl 150 MG 0800 06/01 1200 DC 06/04 PO 0828 Laboratory Tests 06/05/17 0625: Triglycerides 95, Cholesterol 128, LDL Cholesterol, Calc 79, HDL Cholesterol 30 L, Cholesterol/HDL Ratio 4, TSH 2.490, [place] 0.9 Vital Signs Date Time Temp Pulse Resp B/P B/P Pulse O2 O2 Flow FiO2 Mean Ox Delivery Rate 06/05 1234 82 114/53 06/05 1228 82 114/53 06/05 0825 98.7 78 145/72 06/05 0820 78 145/72 06/05 0820 98.7 78 145/72 06/05 0701 64 134/68 06/04 2339 62 16 124/56 06/04 2246 74 136/66 06/04 2033 97.9 74 136/66 06/04 2019 97.9 74 136/66 06/04 1605 76 107/60 06/04 1552 76 107/60 A: Chart, progress notes, labs, vital signs and medication list reviewed. Vital signs within normal limits. Li level therapeutic. TSH wnl. Low HDL. Patient seen at 1:28PM. Reports his mood is "fine." Affect mostly blunted, calm. Speech normal in rate, tone and volume. Eye contact appropriate. He offers no complaints. States his daughter dropped of clothing for him yesterday, however, nursing won't let him use articles d/t inappropriate graphics on clothing. States feeling frustrated over this, in addition to his daughters not picking up the phone for him. Shared that he learned from [facility] today that [facility] stated his sister doesn't want him returning to her home. Patient expressed feeling anxious over this. States his sister said this before prior to him discharging from [facility] in March 2017. He doesn't believe she means this. He denies feeling hopeless, helpless, worthless, or guilty. Denies acute symptoms of depression/ anxiety. Denies SI, urges to self harm, and HI. Denies AH and VH. Thought process linear, goal directed. Cognition grossly intact. Reports tolerating recent increase in Effexor XR well, denies SEs. He is agreeable to continue taking. P: -cont monitoring for safety, mood and SI. -cont Effexor XR 225mg daily for depression. -cont [place] 450mg daily and 750mg nightly, rpt level 06/07/17. -dispo planning per primary team.
--- NOTE | 2017-06-05 20:50 | NUR ---
PT IS VISIBLE ON UNIT, WATCHING TV QUIETLY IN LOUNGE. MINIMAL INTERACTION WITH PEERS, COOPEATIVE AND COMPLIANT WITH STAFF. NO SCORING ON CIWA. NO COMPLAINTS OR SI REPORTED. PT HAS A STABLE MOOD AND FLAT AFFECT.
[2017-06-06 08:06] VITALS: BP 115/67
--- NOTE | 2017-06-06 08:18 | CP SOUTH PROGRESS NOTE PSYCH ---
Psych (Inpt) Progress Note Progress Note Include the following elements, when applicable: Involvement in the active treatment of the patient with behavioral observations of the patient and the patient's response to the treatment. Review of the ongoing treatment process in the context of the treatment plan. Indication of how multi-disciplinary staff members are carrying out the treatment plan. Plans for future interventions and recommendations for revision of the treatment plan. Liaison with other physicians/providers. Progress Note: I discussed this patient's progress to date, current mental status, treatment process in the context of the treatment plan, and discharge planning with staff/ team in the daily morning inpatient team meeting. I also met with the patient myself in individual session. Current Medications Sig/Dariusz Start time Last Medication Dose Route Stop Time Status Admin Albuterol Sulfate 2 PUF Q4-6 PRN PRN 06/04 1400 AC INH Aspirin Buffered 81 MG DAILY 06/01 1153 AC 06/05 PO 0820 Atorvastatin Calcium 10 MG QPM 06/03 2200 AC 06/05 PO 220 Benztropine Mesylate 1 MG BID PRN 06/01 1200 AC 06/01 PO 1236 Chlorpromazine 125 MG QPM 06/02 2200 AC 06/05 PO 2206 Chlorpromazine 50 MG 0800,1700 06/02 1700 AC 06/05 PO 1711 Chlorpromazine 25 MG Q6P PRN 06/01 1200 AC PO Gabapentin 400 MG TID 06/01 1154 AC 06/05 PO 2206 Hydroxyzine HCl 25 MG Q4-6 PRN PRN 06/01 1200 AC 06/01 PO 1615 Insulin Aspart 0 AC & AT BEDTIME 06/03 2200 AC 06/05 SC 220 Insulin Detemir 18 UNITS BID 06/04 2200 AC 06/05 SC 2204 Lisinopril 5 MG DAILY 06/01 1154 AC 06/05 PO 0820 Trommald Carbonate 600 MG QPM 06/04 2200 AC 06/05 PO 2206 [place] Carbonate 450 MG DAILY 06/02 1000 AC 06/05 PO 0820 [place] Carbonate 150 MG QPM 06/01 2200 AC 06/05 PO 2206 Lorazepam 2 MG Q2P PRN 06/02 0845 AC 06/02 PO 0847 Lorazepam 1 MG Q2P PRN 06/02 0845 AC PO Nicotine 2 MG Q2 HRS NEEDED PRN 06/04 0945 AC 06/05 PO 2033 Nicotine 14 MG DAILY 05/31 2048 AC 06/05 TOP 1120 Omeprazole 20 MG DAILY AC 06/04 1349 AC 06/06 PO 0708 Prazosin HCl 2 MG QPM 06/03 2200 AC 06/05 PO 2206 Trazodone HCl 200 MG QPM PRN 06/01 1200 AC 06/04 PO 2306 Venlafaxine HCl 225 MG 0800 06/05 0800 AC 06/05 PO 0820 Vital Signs Date Time Temp Pulse Resp B/P B/P Pulse O2 O2 Flow FiO2 Mean Ox Delivery Rate 06/06 08 97.9 84 115/67 06/06 0806 97.9 84 11567 06/05 2206 97.8 81 16 116/60 06/05 2004 97.8 81 116/60 06/05 2001 97.8 81 116/60 06/05 1619 84 124/59 06/05 1552 84 124/59 06/05 1234 82 114/53 06/05 1228 82 114/53 06/05 0825 98.7 78 145/72 06/05 0820 78 145/72 06/05 0820 98.7 78 145/72 A: Chart, progress notes, labs, vital signs and medication list reviewed. Vital signs within normal limits. No new lab results today. Patient seen at 10:25AM, on the date of discharge. Patient presented alert and oriented to person, place, time and situation. Calm and cooperative. Stated his mood is "pretty good." Affect blunted, calm. Speech normal in rate, tone and volume. Eye contact appropriate. He offered no complaints. Denied feeling hopeless, helpless, worthless or guilty. Rated depression/sadness a 1-2/10 (10 being worst) and anxiety a 3-4/10 (10 being worst). Denied passive and active suicidal ideation, plans and intent. Stated and also believed he will not harm himself or others. Denied homicidal ideation. Denied auditory and visual hallucinations. There was no evidence of paranoia or saumya delusions/illogical thought content. He denied urges/cravings to use substances. He reported motivation to resume [facility] IOP tomorrow and continue with outpatient services there. Thought process was linear, goal directed. He reported tolerating all medications well and denied untoward effects. He reported feeling safe and ready for discharge. P: -Discharge home today via [employer]. -[facility]u at [facility], 06/07/17. Next medication appointment with Kacy Nguyen APRN on 06/13/17. -Dr. Martin's office to be in contact with your leather case finisher to schedule outpatient appointment for diabetes management. Per Dr. Martin, patient to resume insulin pump post-discharge with same setting prior to hospital. Pt verbalized understanding of instructions. -Discharge prescriptions e-prescribed to [facility] per patient/VNS request. Patient reported having adequate home supplies of Tromm[place] (both CR 450mg tabs and Carbonate 300mg and 150mg caps); cogentin 1mg tabs, lisinopril 5mg tabs, prazosin 1mg caps, protonix 40mg tabs, gabapentin 400mg caps, trazodone 100mg tabs, thorazine 25mg and 50mg tabs, simvastatin 10mg tabs, aspirin 81mg tabs, hydroxyzine caps. Patient verbalized understanding to resume insulin pump post-discharge with same settings, per Dr. Martin instruction. -[facility] to resume this evening at 4PM. VNS to apple picker prescriptions from [facility]. -Pt instructed to f/u with Dr. Hansel Mcqueen in 2 weeks for outpatient wound management. Office contact information provided. -Pt instructed that in the event of an emergency, to call [phone] to the nearest emergency department. Pt verbalized understanding of instruction.
--- NOTE | 2017-06-06 10:31 | SOCIAL WORKER PROG NOTE PSYCH ---
Social Work Progress Note Progress Note Case discussed in team meeting for possibility of discharge for today vs. tomorrow. Team agreed that Chivo is at baseline and ok for discharge. Talked with Chivo about current mood. He said he felt good and had no issues around returning home today. Asked if he had thoughts about drinking? He said no. Asked what his plan was for when things are stressful at home? He stated he would call his disease case manager at [facility]. He would be open to looking for alternative housing, but feels stuck due to having no income. Social Security is still pending. He also said he would utilize mobile crisis if necessary. Called [facility] to let them know Chivo is discharging today and needs to resume services for today. They will see him this afternoon. Jose Luis was called to schedule a pickling operator to go home. I also changed the location of his pickling operator for tomorrow for [facility].
[2017-06-06] MEDS ORDERED: EFFEXOR XR75 M1 PO (10:59)
[2017-06-06] MEDS ORDERED: NICOTINE PATCH1 EAC2 TOP (10:59)
[2017-06-06] MEDS ORDERED: VENTOLIN HFA18 GM INH (10:59)
--- NOTE | 2017-06-06 11:04 | Patient Discharge Instructions ---
Psych Discharge Inst General Discharge Information Reason for Admission: Suicidal ideation with plan to cut his arm in the setting of alcohol intoxication. Psy Discharge Primary Diag+ Bipolar disorder, MRE depressed Psy Discharge Secondary Diag+ Alcohol use disorder; Nicotine use disorder; Insulin dependent DM; Asthma; COPD; GERD; s/p pilonidal cyst removal; HLD; HTN; Seizure disorder Summary Tests/Major Procedures Lab BUN 9 mg/dL 05/30/172114 BUN/Creatinine Ratio 12.9 % 05/30/172114 Cholesterol 128 MG/DL 06/05/17624 Cholesterol/HDL Ratio 4 % 06/05/17624 Creatinine 0.7 mg/dL 05/30/172114 Estimated GFR > 60 ml/min 05/30/172114 Glucose 146 mg/dL H 05/30/172114 HDL Cholesterol 30 mg/dL L 06/05/17624 LDL Cholesterol, Calc 79 mg/dL 06/05/1725 TSH 2.490 uIU/mL 06/05/17624 Triglycerides 95 mg/dL 06/05/1725 Hollis 0.9 mmol/L 06/05/1725 Serum Alcohol 220.0 MG/DL 05/30/172114 Next Hollis level due 06/07/17 Lab slip provided. Instructed to complete lab draw prior to taking scheduled morning Hollis dose on 06/07/17. Studies Pending at DC: N/A Patient Instructions Contact Information Your Psychiatrist on [facility] was CURTIS LACKEY,JOVAN Munroe/ FABIANO VAN APRN. * If you are experiencing an emergency related to this hospitalization, please call [phone] to contact the treating psychiatrist or the psychiatrist-on- call. * To Request a copy of your medical records, please contact the Medical Records Department at [phone]. * To request results of studies pending at the time of discharge, please call [phone]. * Continue your Medications until directed to stop by your Healthcare provider. General Medication Information Please continue to take your new medications and your continued home medications , unless otherwise indicated on your discharge medication list, or unless directed by your or LEYDI to stop them. Special Instructions: DIET: Regular. ACTIVITY LEVEL: No restrictions. Advance Directives Does the Patient have Medical Advance Directives No/Refused further info Does Pt have Psychiatric Advance Directives? No/Refused further info Does Patient have a Designated Surrogate Decision Maker: No Information About Psychiatric Advance Directives Provided? Yes Discharge Plan Post Hospital Treatment Plan: Please follow up with below scheduled appointments: Provider Referral Service Date: 06/07/17 Referred To: [[facility]] Notes: [facility] IOP 1-4pm 06/07/17 [address] [place], [place] [phone] Provider Referral Service Date: 06/13/17 Referred To: [[facility]] Notes: [facility] appt. with Kacy Patrick WELD ENGINEER 06/13/17 4pm [address] [facility], [place] [phone] Provider Referral Service Date: 06/06/17 Referred To: [facility], [facility] Notes: Visiting nurse service to resume twice daily for med administration; to start this evening. (G) [phone] In the event of an emergency, call [phone] to the nearest emergency department.
--- NOTE | 2017-06-06 11:11 | NUR ---
PT SCHEDULED FOR DISCHARGE TODAY AND REPORTS FEELING READY, NO ISSUES OR COMPLAINTS REPORTED OR OBSERVED. WHEN ASKED DIRECTLY DENIES SI/HI/HALLUCINATIONS. HAS A + UNDERSTANDING OF MEDICATION REGIMENT AND MENTAL HEALTH AND PHYSICAL FOLLOW-UP APPTS AND PLAN. PT REPORTS AN OVERALL IMPROVEMENT. MOOD STABLE WITH FULL RANGE AFFECT, APPROPRIATE WITH PEERS AND STAFF AND ABLE TO ARTICULATE NEEDS AND SELF WELL. DR. BACH CONTACTED TO ADDRESS INSULIN ORDERS AND PER MD THE PT CAN RESUME USING HIS INSULIN PUMP WITH THE CURRENT SETTINGS, WHILE ON THE PHONE WITH DR. BACH IT WAS CONFIRMED WITH THE PT THAT THE BATTERIES IN THE PUMP WORK AND HE HAS INSULIN AT HOME, PT ALSO TO CALL THE OFFICE AND MAKE AN APPT TO SEE THEM WITHIN THE WEEK. PT VERBALIZED UNDERSTANDING, TRUSTEE OF ESTATE AND DR. BACH AWARE OF THE PLAN. DR. FREEDMAN ALSO REMINDED OF THE NEED FOR FOLLOW-UP CONSULT AND REPORTED WOULD BE ON THE UNIT TO SEE THE PT @ ABOUT 12:30PM.
--- NOTE | 2017-06-06 11:18 | NUR ---
INFORMATION RE: SI AND DEPRESSION GIVEN WELL AND PERTINENT PHONE NUMBERS REVIEWED.
[2017-06-06 12:13] VITALS: BP 115/59
[2017-06-06 12:26] VITALS: BP 115/59
--- NOTE | 2017-06-06 13:13 | NUR ---
DR. FREEDMAN SAW PT FOR FOLLOW-UP AND WROTE A SCRIPT FOR MINOR CHANGES TO WOUND CARE MANAGEMENT (FOR VISITING NURSE), PT AWARE AND NO OTHER ISSUES OR CONCERNS, SCRIPT GIVEN TO PT.
--- NOTE | 2017-06-06 13:16 | PN- General Surgery ---
Surgical Brief Attending Note Brief Attending Note: Chivo's wound has been evaluated. it is healing as expected. script for new wound care orders provided to patient to give to his visiting nurse. he should f /u with me in two weeks/.
--- NOTE | 2017-06-06 16:13 | DISCHARGE SUMMARY REPORT-PSYCH ---
Visit Information Visit Dates/Diagnosis' Admission Date: 06/03/17 Discharge Date: 06/06/17 Reason for Admission: Suicidal ideation with plan to cut his arm in the setting of alcohol intoxication. Psy Discharge Primary Diag: Bipolar disorder, MRE depressed Psy Discharge Secondary Diag: Alcohol use disorder; Nicotine use disorder; Insulin dependent DM; Asthma; COPD; GERD; s/p pilonidal cyst removal; HLD; HTN; Seizure disorder Hospital Course Significant Lab Findings: Lab Glucose 146 mg/dL H 05/30/172114 HDL Cholesterol 30 mg/dL L 06/05/17624 WBC 13.0 /CUMM H 05/30/172114 Irvine 0.9 mmol/L 06/05/17624 Serum Alcohol 220.0 MG/DL 05/30/172114 Course Complications: None. Consultations: The patient was seen for admission history and physical by digital account director Dr. Cara Robles. Please see her note for additional information. The patient was evaluated by missile technician, Dr. Tru Martin and followed for diabetes management throughout his stay for continuously elevated blood sugars. The patient was started on Levemir 18 units BID and a Novolog sliding scale before meals and at bedtime. Per Dr. Martin's instructions, the patient is to resume his insulin pump at its normal settings on discharge for continued management of diabetes and follow up in his office 1 week from discharge date. Please see Dr. Martin's notes for additional information. The patient was further consulted by general surgeon, Dr. Hansel Mcqueen for ongoing drainage and discomfort at the site of a recently removed pilonidal cyst. Patient was provided with a prescription for new wound care orders and was instructed by Dr. Mcqueen to give this to his visiting nurse. The patient was also instructed to follow up in Dr. Mcqueen's office 2 weeks from discharge date. Please see Dr. Mcqueen's note for additional information. Allergies: Coded Allergies: quetiapine (Severe, THROAT CLOSES...SEROQUEL 05/06/17) perphenazine (Mild, ANXIETY...TRILAFON 05/06/17) clozapine (From CLOZARIL) (SEIZURES 05/06/17) Hospital Course/TX Response: The patient was monitored on the unit for safety, suicidal ideation, mood and alcohol withdrawal. He was monitored on CIWA protocol and did not exhibit any complications. He participated in multimodal treatments on the unit. Irvine CR 450mg daily and Irvine Carbonate 750mg nightly were continued for mood stabilization. Prazosin 2mg nightly was continued for nightmares. Thorazine 50mg twice daily and 125mg at bedtime were continued for clear thoughts. Trazodone 200mg nightly PRN was continued for insomnia. Gabapentin 400mg three times daily was continued for seizures/anxiety. Effexor XR 150mg daily was increased to 225mg daily for depression. All home medical and PRN medications were continued as prescribed outpatient, with an exception to insulin regimen (see ' Consultations' for endocrinology recommendations). The patient reported tolerating medications well and denied untoward effects. During the hospital course, the patient's mood and affect improved. Suicidal ideation remitted. He consistently denied suicidal and homicidal ideation, plans or intent in the hospital. There was no evidence of auditory or visual hallucinations, delusions or illogical thought content. Patient reported that his suicidal ideation prior to hospital arrival was related to alcohol intoxication and frustration from a previous argument. He refused family or friend involvement in his inpatient care. He was in favor of returning to [facility] on 06/07/17, 1-4PM, and resuming services with his visiting nurse. On the date of discharge, 06/06/17, the patient presented alert and oriented to person, place, time and situation. He is calm and cooperative. Stated his mood is "pretty good." Affect blunted, calm. Speech normal in rate, tone and volume. Eye contact appropriate. He offered no complaints. He denied feeling hopeless, helpless, worthless or guilty. Rated his depression/sadness a 1-2/10 (10 being worst) and anxiety a 3-4/10 (10 being worst). He denied passive and active suicidal ideation, plans and intent. He denied having urges to self harm. He stated and also believed he will not harm himself or others. Denied homicidal ideation. Denied auditory and visual hallucinations. There was no evidence of paranoia or saumya delusions/illogical thought content. He denied urges/cravings to use substances. He reported motivation to resume [facility] tomorrow and continue with outpatient services there. Thought process was linear, goal directed. He reported tolerating all medications well and denied untoward effects. He reported feeling safe and ready for discharge. Discharge HBIPS - Tobacco Use Treatment Offered Post DC Medications Offered: Script Given-See Med List Post DC Tobacco Treatment Plan: Refused Tobacco Tx Pgm - EtOH/Drug Use D/O Treatment Offered Post DC Medications Offered: Ref Med EtOH/Drug Use D/O Post DC EtOH/SubAbuse TX Plan: Other SubAbuse/Dual Pgm Program Appt Date: 06/07/17 Metabolic Screening - Screen if on a Neuroleptic Medication - Metabolic screening should include: - Blood Pressure, BMI, Glucose or Hgb A1c, & a - Lipid profile from within the past 365 days. Metabolic Screening () Not Applicable, patient not on a neuroleptic. OR ([X]) Patient on a neuroleptic(s) . Enter below results for Glucose or Hemoglobin A1C, and lipid panel if obtained during the last 365 days. BMI: 20.800 Blood Pressure: 115/59 Laboratory Results (If applicable): Lab Cholesterol 128 MG/DL 06/05/17 0625 Cholesterol/HDL Ratio 4 % 06/05/17 0625 Glucose 146 mg/dL H 05/30/17 2115 HDL Cholesterol 30 mg/dL L 06/05/17 0625 LDL Cholesterol, Calc 79 mg/dL 06/05/17 0625 Triglycerides 95 mg/dL 06/05/17 0625 Discharge Instructions General Discharge Information Discharge Medications: Discharge Medications- (Dose, route, freq, indication): START taking these NEW Home Medications: Albuterol Sulfate Dose: Inhale through mouth, Qty: 1 Sent to (Ventolin Hfa) 90 2 Puff EVERY 4-6 HOURS Refills: 0 Pharm 1 MCG HFA.AER.AD NEEDED as needed for shortness of breath Take 2 puffs inhalation Q4-6 hours PRN for shortness of breath. Nicotine (Nicotine Dose: On the skin, DAILY for Qty: 14 Sent to Patch) 14 MG/24 HOUR 1 Patch smoking cessation Refills: 0 Pharm 1 PATCH.TD24 Apply 1 patch topically daily and remove before HS. Last Taken: 06/06/17 Time: 0800 Venlafaxine HCl Dose: ORAL, DAILY @8 AM for Qty: 42 Sent to (Effexor XR) 75 MG 225 Milligram depression Refills: 0 Pharm 1 CAP.ER.24H Take 3 caps (225mg) po daily. CONTINUE taking these Home Medications: Lisinopril (Prinivil) 5 Dose: ORAL, DAILY for BP MG TABLET 1 Tablet Last Taken: 06/06/17 Time: 0800 Irvine Carbonate Dose: ORAL, DAILY for mood (Irvine Carbonate ER) 1 Tablet stabilization 450 MG TABLET.ER Last Taken: 06/06/17 Time: 0800 Irvine Carbonate Dose: ORAL, TAKE AT BEDTIME (Irvine Carbonate) 300 600 Milligram for mood stabilization MG TABLET Last Taken: 06/05/17 Time: 2200 Prazosin HCl (Prazosin Dose: ORAL, Every night for HCl) 1 MG CAPSULE 2 Capsule PTSD NIGHTMARES Last Taken: 06/05/17 Time: 2200 Pantoprazole Sodium Dose: ORAL, DAILY for GERD (Protonix) 40 MG 1 Tablet Last received TABLET. Omeprazole (in the hospital [facility]) 20mg on 06/06/17 @ 0700. Gabapentin (Neurontin) Dose: ORAL, THREE TIMES DAILY 400 MG CAPSULE 1 Capsule for SEIZURES Last Taken: 06/06/17 Time: 0800 Trazodone HCl (Trazodone Dose: ORAL, Every night as HCl) 100 MG TABLET 2 Tablet needed for SLEEP Last Taken: 06/04/17 Time: 2300 Chlorpromazine HCl Dose: ORAL, Every night for (Chlorpromazine HCl) 25 5 Tablet clear thoughts MG TABLET Last Taken: 06/05/17 Time: 2200 Simvastatin (Simvastatin Dose: ORAL, Every night for *) 10 MG TABLET 1 Tablet CHOLESTEROL Last received (lipitor while in the [facility]) 10mg on 06/05/17 @ 2200 Aspirin (Ecotrin*) 81 MG Dose: ORAL, DAILY for HEART TABLET. 1 Tablet HEALTH Last Taken: 06/06/17 Time: 0800 Hydroxyzine Pamoate Dose: ORAL, EVERY 4 HOURS (Hydroxyzine Pamoate) 25 1 Capsule NEEDED as needed for MG CAPSULE AGITATION Last Taken: 06/01/17 Time: 1600 Benztropine Mesylate Dose: ORAL, TWICE DAILY as (Benztropine Mesylate) 1 1 Tablet needed for TREMORS MG TABLET Last Taken: 06/01/17 Time: 1230pm Chlorpromazine HCl Dose: ORAL, TWICE DAILY for (Chlorpromazine HCl) 50 1 Tablet clear thoughts MG TABLET Last Taken: 06/06/17 Time: 0800 Irvine Carbonate Dose: ORAL, Every night for (Irvine Carbonate) 150 1 Capsule mood stabilization MG CAPSULE Last Taken: 06/05/17 Time: 2200 ( in conjunction with Irvine 600mg at hs, for a total of 750mg nightly). Insulin Lispro (Humalog) Dose: , for DM (Unknown Strength) Unknown Dose Continue to take as CARTRIDGE prescribed with current pump settings. Instructions per missile technician Dr. Tru Martin. STOP taking these DISCONTINUED Home Medications: Venlafaxine HCl (Effexor XR) Dose: ORAL, DAILY for MENTAL HEALTH 150 MG CAP.ER.24H 1 Capsule Reason Stopped: Changed Dose 1: [facility], [address] [place] [id number] [facility] [address] [place] [address] [id number] Multiple Neuroleptics: ([X]) Not Applicable OR Document below three failed attempts at monotherapy, or a plan to taper to monotherapy, or augmentation of Clozapine. () Patient's Diet: Regular. Patient's Activity: No restrictions. DC Disposition: Patient to return to his sister's home. Recommendations: The patient was advised to please take his medications as prescribed. He was provided with an outpatient lab slip and instructed to have Irvine level drawn on the morning of 06/07/17, prior to taking his scheduled morning Irvine dose. He was advised by missile technician Dr. Martin to resume his insulin pump at its regular settings on discharge and also to follow up in his outpatient office 1 week from discharge. He was advised to follow up with Dr. Mcqueen in his outpatient office 2 weeks following discharge for continued wound management of recently removed pilonidal cyst. He was advised to follow up with [facility] on 06/07/17 for outpatient psychiatric treatment and continue with visiting nurse service. He was strongly advised to abstain from all substances, attend daily to weekly AA meetings and obtain a sponsor for support in sobriety. He was advised that in the event of an emergency to call [phone] to the nearest emergency department. Referred To: Provider Referral Service Date: 06/07/17 Referred To: [facility] Notes: [facility] 1-4pm 06/07/[address] [place] [address], [place] [phone] Provider Referral Service Date: 06/13/17 Referred To: [facility] Notes: [facility] appt. with Kacy Nguyen ELECTRICAL MACHINE BUILDER 06/13/17 4pm [address] [facility], [place] [phone] Provider Referral Referred To: Tru Martin MD [address] [place] [address], [place] [address] Notes: Dr. Martin's office to be in touch with your [facility] case management assistant to schedule an appointment for as soon as possible for outpatient management of diabetes. Currently there are no available appointments within 1 week. Provider Referral Service Date: 06/06/17 Referred To: [facility] [Visiting Nurse] Notes: [facility] 2 times a day for medication administration. [phone])[phone] Provider Referral Referred To: Dr. Hansel Mcqueen MD [address] [place] [id number] [phone] Notes: Follow up in Dr. Mcqueen's office in 2 weeks for outpatient wound care management. Copies To: [facility]; TRU MARTIN MD; [facility]; TANO LACKEY,HANSEL Harp
== END 2017-06-06 16:00 | DRG 753 ==
LOC: ERH 20:43 → CP SOUTH 06-03 13:17 → ERHI 06-03 13:17 → ENTRNSPT 06-03 13:53 → CP SOUTH 06-03 14:42 → EDTRNSPT 06-03 14:46 → EDTRNSPTSTS 06-03 14:46 → CP SOUTH 06-03 14:49 → CMPTRNSPT 06-03 14:54 → ENRESERV 06-03 23:59 → CP SOUTH 06-05 11:07
PROVIDERS: Physician Assistant Medical; Registered Nurse Psychiatric/Mental Health; ADMIT Psychiatry & Neurology Addiction Medicine
DX: F31.89 Other bipolar disorder (principal); Z72.89 Other problems related to lifestyle
CPT/HCPCS: 36415; 80307; 81003; G0463; G0480; J1815; J3230; J3490

== ENCOUNTER 2017-11-22 19:42 | Emergency (ER) | payer OTHER ==
[~2017-11-22] VITALS: Ht 175.3 cm; Wt 98.9 kg
[~2017-11-22 19:42] MED LIST changes: +ACAMPROSATE CA333 M1 PO; +AMOXICILLIN500 M2 PO; +ASPIRIN EC81 M1 PO; +BENZTROPINE MESY1 M1 PO; +BIOTENE473 ML PO; +CARBAMAZEPINE100 M2 PO; +CEPHALEXIN500 M3 PO; +CHLORDIAZEPOXID25 M3 PO; +CHLORPROMAZINE100 M2 PO; +CHLORPROMAZINE50 M2 PO; +DOCUSATE SODIU100 M3 PO; +EFFEXOR XR75 M1 PO; +GABAPENTIN400 M2 PO; +HUMALOG100 UNIT/1; +HUMALOG100 UNIT/2; +HUMALOG100 UNIT/2 SC; +HYDROXYZINE PAM25 M2 PO; +LITHIUM CARBON300 M6 PO; +LORAZEPAM1 M1 PO; +MINIPRESS2 M1 PO; +MIRALAX119 GM PO; +NICORELIEF4 MG PO; +NICOTINE PATCH1 EAC2 TOP; +OXYCODONE-ACET1 EACH PO; +PRAZOSIN HCL5 M1 PO; +PROAIR HFA8.5 GM INH; +PROPRANOLOL HCL10 M1 PO; +TEGRETOL XR100 MG PO; +TEGRETOL200 M1 PO; +VENTOLIN HFA18 GM INH; +VITAMIN D250000 UNIT PO
--- NOTE | 2017-11-22 19:48 | ED GI/GU/ABDOMINAL COMPLAINT ---
History of Present Illness General Chief Complaint: Nausea, Vomiting, Diarrhea Stated Complaint: N/V Source: patient, family Exam Limitations: no limitations Vital Signs & Intake/Output Vital Signs & Intake/Output Vital Signs Date Time Temp Pulse Resp B/P B/P Pulse O2 O2 Flow FiO2 Mean Ox Delivery Rate 11/22 2146 98.4 96 18 159/77 97 Room Air 11/22 1945 99.2 88 20 138/77 99 Room Air ED Intake and Output 11/23 0000 11/22 1200 Intake Total 2000 Output Total Balance 1999 Intake, IV 2000 Intake, Oral 0 Patient 218 lb Weight Weight Reported by Patient Measurement Method Allergies Coded Allergies: quetiapine (Severe, THROAT CLOSES...SEROQUEL 05/06/17) perphenazine (Mild, ANXIETY...TRILAFON 05/06/17) clozapine (From CLOZARIL) (SEIZURES 05/06/17) Reconcile Medications Acamprosate Calcium 333 MG TABLET.DR 2 TAB PO TID alcohol cravings Albuterol Sulfate (Ventolin Hfa) 90 MCG HFA.AER.AD 2 PUF INH Q4-6 PRN PRN shortness of breath Take 2 puffs inhalation Q4-6 hours PRN for shortness of breath. Aspirin (Ecotrin*) 81 MG TABLET.DR 1 TAB PO DAILY HEART HEALTH Carbamazepine (Tegretol) 200 MG TABLET 1 TAB PO BID mood stabilization Carbamazepine 100 MG TAB.CHEW 1 TAB PO QPM mood stabilization Take with one 200mg tab po QPM for a total of 300mg QPM. Chlorpromazine HCl 25 MG TABLET 5 TAB PO QHS clear thoughts Take 5 tabs (125mg) po QHS. Chlorpromazine HCl 50 MG TABLET 1 TAB PO BID clear thoughts Take 1 tab po BID at 8AM and 1PM. Docusate Sodium 100 MG CAPSULE 1 CAP PO BID constipation Ergocalciferol (Vitamin D2) (Vitamin D2) 50,000 UNIT CAPSULE 1 CAP PO ONCE A WEEK vitamin support Take 1 cap po once a week. Folic Acid 1 MG TABLET 1 TAB PO DAILY SUPPLEMENT Gabapentin 400 MG CAPSULE 1 CAP PO TID seizures Insulin Lispro (Humalog) 100 UNIT/ML VIAL 0 SC SEE ADMIN CRITERIA diabetes Resume regular home insulin pump settings. Lisinopril (Prinivil) 5 MG TABLET 1 TAB PO DAILY HTN [place] Carbonate ([place] Carbonate ER) 450 MG TABLET.ER 1 TAB PO BID mood stability/depression Multivitamin (One Daily Multivitamin) 1 EACH TABLET 1 TAB PO DAILY SUPPLEMENT Nicotine Polacrilex (Nicorelief) 4 MG GUM 1 GUM PO Q2 HRS NEEDED PRN nicotine craving Omeprazole Magnesium (Prilosec Otc) 20 MG TABLET.DR 1 TAB PO DAILY STOMACH BURNING Ondansetron (Zofran Odt) 4 MG TAB.RAPDIS 1 TAB SL TID PRN NAUSEA AND VOMITING Pantoprazole Sodium (Protonix) 40 MG TABLET.DR 1 TAB PO DAILY GERD Polyethylene Glycol 3350 (Miralax) 17 GRAM/DOSE POWDER 1 PACKET PO DAILY constipation Prazosin HCl 5 MG CAPSULE 1 CAP PO AT BEDTIME nightmares Prazosin HCl (Minipress) 2 MG CAPSULE 1 CAP PO QHS nightmares Take with one 5mg cap po for a total of 7mg QHS. Propranolol HCl 10 MG TABLET 1 TAB PO BID tremor Saliva Substitute Combo No.9 (Biotene) 473 ML MOUTHWASH 2 SPRAY PO Q2P PRN dry mouth Simvastatin (Simvastatin*) 10 MG TABLET 1 TAB PO QPM CHOLESTEROL Thiamine HCl (Vitamin B-1) 100 MG TABLET 1 TAB PO DAILY SUPPLEMENT Trazodone HCl 100 MG TABLET 2 TAB PO QPM PRN insomnia Venlafaxine HCl (Effexor XR) 150 MG CAP.ER.24H 2 CAP PO DAILY depression Take 2 caps (300mg) po daily. Triage Nurses Notes Reviewed? yes Timing: recent history Quality/Severity: cramping Location: epigastric, generalized abdomen, right lower quadrant Radiation: no radiation Activities at Onset: none Prior Abdominal Problems: similar symptoms Modifying Factors: Worsens With: palpation, vomiting. Associated Symptoms: abdominal pain, nausea/vomiting HPI: 42 YO gentleman presents with nausea and vomiting, without diarrhea, "all day long." He notes that "I can't hold anything down... anything I eat comes right back up." He notes no fever, chills, chest pain. Past History Medical History Any Pertinent Medical History? see below for history Neurological: NONE EENT: NONE Cardiovascular: NONE Respiratory: NONE Gastrointestinal: NONE Hepatic: NONE Renal: NONE Musculoskeletal: NONE Psychiatric: alcohol dependence, bipolar disease, History of suicide attempts. 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 No Review of Systems Review of Systems Constitutional: Reports: no symptoms. EENTM: Reports: no symptoms. Respiratory: Reports: no symptoms. Cardiovascular: Reports: no symptoms. GI: Reports: no symptoms. Genitourinary: Reports: no symptoms. Musculoskeletal: Reports: no symptoms. Skin: Reports: no symptoms. Neurological/Psychological: Reports: no symptoms. Hematologic/Endocrine: Reports: no symptoms. Immunologic/Allergic: Reports: no symptoms. All Other Systems: Reviewed and Negative Physical Exam Physical Exam General Appearance: well developed/nourished, no apparent distress Head: atraumatic Eyes: Bilateral: normal appearance. Ears, Nose, Throat, Mouth: hearing grossly normal, moist mucous membrane Neck: normal inspection, supple, full range of motion Respiratory: normal breath sounds, chest non-tender, no respiratory distress, quiet respiration Cardiovascular: regular rate/rhythm Gastrointestinal: mid epigastric and rlq tenderness to palpation. Back: normal inspection Extremities: normal range of motion Neurologic/Psych: no motor/sensory deficits, awake, alert, oriented x 3 Skin: intact, normal color, warm/dry Core Measures ACS in differential dx? No Sepsis Present: No Sepsis Focused Exam Completed? No Progress Differential Diagnosis: viral gastro vs other. Plan of Care: Orders Procedure Date/time Status TROPONIN LEVEL 11/22 1947 Complete LIPASE 11/22 1947 Complete HEPATIC FUNCTION PANEL 11/22 1947 Complete CBC WITHOUT DIFFERENTIAL 11/22 1947 Complete BASIC METABOLIC PANEL 11/22 1947 Complete AMYLASE 11/22 1947 Complete ACETONE 11/22 1947 Complete EKG 11/22 1947 Active Laboratory Tests 11/22/17 2020: Anion Gap 16, Estimated GFR > 60, BUN/Creatinine Ratio 36.7 H, Glucose 201 H, Calcium 9.4, Total Bilirubin 0.7, Direct Bilirubin 0.3, AST 20, ALT 37, Alkaline Phosphatase 75, Troponin I < 0.01, Total Protein 7.6, Albumin 4.8, Amylase 61, Lipase < 10 L, CBC w Diff NO MAN DIFF REQ, RBC 4.88, MCV 94.5 H, MCH 31.9 H, RDW 13.8, MPV 8.4, Gran % 90.8 H, Lymphocytes % 4.9 L, Monocytes % 3.9, Eosinophils % 0.4, Basophils % 0, Absolute Granulocytes 12.5 H, Absolute Lymphocytes 0.7 L, Absolute Monocytes 0.5, Absolute Eosinophils 0.1, Absolute Basophils 0, PUBS MCHC 33.7, Acetone Level NEGATIVE Diagnostic Imaging: Viewed by Me: CT Scan. Discussed w/RAD: CT Scan. Radiology Impression: PATIENT: TRU BRAVO PRESENT AGE: 42 PATIENT ACCOUNT NO: [id number] : 74 LOCATION: [facility] ORDERING PHYSICIAN: Enrique Loredo MD SERVICE DATE: 11/22/17 EXAM TYPE: CAT - CT ABD & PELVIS W/O IV CONTRAS EXAMINATION: CT ABDOMEN AND PELVIS WITHOUT CONTRAST CLINICAL INFORMATION: Mid abdominal pain. Right lower quadrant pain. COMPARISON: Ultrasound of abdomen 10/28/2017. CT scan abdomen pelvis 01/23/2016 TECHNIQUE: Multidetector volumetric imaging was performed from the superior aspect of the liver through the pubic symphysis. Sagittal and coronal reformatted images were obtained on the technologist's workstation. DLP: 430.45 mGy-cm FINDINGS: LUNG BASES: Reticular subpleural opacities at lung bases likely from dependent atelectasis.. LIVER, GALLBLADDER, AND BILIARY TREE: The liver is normal in size, shape, and attenuation. No focal hepatic lesion or biliary ductal dilatation is present. Status post cholecystectomy. Extrahepatic CBD measures 5 mm. PANCREAS: Unremarkable. SPLEEN: Unremarkable. ADRENAL GLANDS: Unremarkable. KIDNEYS AND URETERS: Midpole cortical cyst left kidney posteriorly measuring 3 cm. No renal or ureteral calculi. No hydronephrosis. BLADDER: Unremarkable. GASTROINTESTINAL TRACT: No acute change of the bowel. No bowel obstruction. No bowel wall thickening or edema. The appendix is not seen. Small bowel loops are unremarkable. ABDOMINAL WALL: No significant hernia is appreciated. LYMPH NODES: Normal. VASCULAR: Atherosclerotic vascular wall calcification of the aortic bifurcation. No aneurysm of the aorta. PELVIC VISCERA: Unremarkable. OSSEOUS STRUCTURES: Unremarkable. IMPRESSION: Normal CT scan abdomen pelvis. The appendix is not visualized but there is no inflammation the mesentery. No acute change of bowel. Status post cholecystectomy. DICTATED BY: Leonidas Bullard MD DATE/TIME DICTATED:11/22/172042 LIVESTOCK NUTRITIONIST:CRIS DATE/TIME TRANSCRIBED:11/22/172042 CONFIDENTIAL, DO NOT COPY WITHOUT APPROPRIATE AUTHORIZATION. <Electronically signed in Other Vendor System> SIGNED BY: Leonidas Bullard MD 11/22/172052 Initial ED EKG: normal axis, normal intervals, normal p-waves, normal QRS complex, normal sinus rhythm Departure Departure Disposition: HOME OR SELF CARE Condition: Stable Clinical Impression Primary Impression: Abdominal pain Secondary Impressions: Nausea and vomiting Referrals: Charleen Montanez APRN (PCP/Family) Departure Forms: Customer Survey General Discharge Information Prescriptions: Current Visit Scripts Omeprazole Magnesium (Prilosec Otc) 1 TAB PO DAILY #30 TAB Ondansetron (Zofran Odt) 1 TAB SL TID PRN NAUSEA AND VOMITING #10 TAB Comments 11/22/17, 21:45... pt feeling well after supportive medications. labs/ct scan benign.. pt safe for discharge with ppi and anti emetics.
[2017-11-22 20:37] LABS: ABSOLUTE BASOPHIL COUNT 0 /CUMM (0.0-0.2); ABSOLUTE EOSINOPHIL COUNT 0.1 /CUMM (0.0-0.7); ABSOLUTE GRANULOCYTE CT 12.5 /CUMM (1.4-6.5); ABSOLUTE LYMPH COUNT 0.7 /CUMM (1.2-3.4); ABSOLUTE MONOCYTE COUNT 0.5 /CUMM (0.10-0.60); BASOPHIL % 0 % (0.0-2.0); EOSINOPHIL % 0.4 % (0-5); GRANULOCYTE % 90.8 % (42.2-75.2); HEMATOCRIT 46.1 % (42-52); MEAN CORPUSCULAR HGB 31.9 PG (27.0-31.0); MEAN CORPUSCULAR HGB CONC 33.7 G/DL (33.0-37.0); MEAN CORPUSCULAR VOLUME 94.5 FL (80.0-94.0); MEAN PLATELET VOLUME 8.4 FL (7.4-10.4); PLATELET COUNT 235 /CUMM (130-400); RBC DISTRIBUTION WIDTH 13.8 % (11.5-14.5); RED BLOOD CELL CT 4.88 /CUMM (4.70-6.10); WHITE BLOOD CELL COUNT 13.8 /CUMM (4.8-10.8)
--- NOTE | 2017-11-22 20:53 | CT SCAN REPORT ---
EXAMINATION: CT ABDOMEN AND PELVIS WITHOUT CONTRAST CLINICAL INFORMATION: Mid abdominal pain. Right lower quadrant pain. COMPARISON: Ultrasound of abdomen 10/28/2017. CT scan abdomen pelvis 01/23/2016 TECHNIQUE: Multidetector volumetric imaging was performed from the superior aspect of the liver through the pubic symphysis. Sagittal and coronal reformatted images were obtained on the technologist's workstation. DLP: 430.45 mGy-cm FINDINGS: LUNG BASES: Reticular subpleural opacities at lung bases likely from dependent atelectasis.. LIVER, GALLBLADDER, AND BILIARY TREE: The liver is normal in size, shape, and attenuation. No focal hepatic lesion or biliary ductal dilatation is present. Status post cholecystectomy. Extrahepatic CBD measures 5 mm. PANCREAS: Unremarkable. SPLEEN: Unremarkable. ADRENAL GLANDS: Unremarkable. KIDNEYS AND URETERS: Midpole cortical cyst left kidney posteriorly measuring 3 cm. No renal or ureteral calculi. No hydronephrosis. BLADDER: Unremarkable. GASTROINTESTINAL TRACT: No acute change of the bowel. No bowel obstruction. No bowel wall thickening or edema. The appendix is not seen. Small bowel loops are unremarkable. ABDOMINAL WALL: No significant hernia is appreciated. LYMPH NODES: Normal. VASCULAR: Atherosclerotic vascular wall calcification of the aortic bifurcation. No aneurysm of the aorta. PELVIC VISCERA: Unremarkable. OSSEOUS STRUCTURES: Unremarkable. IMPRESSION: Normal CT scan abdomen pelvis. The appendix is not visualized but there is no inflammation the mesentery. No acute change of bowel. Status post cholecystectomy.
[2017-11-22] MEDS ORDERED: ZOFRAN ODT4 M1 SL (21:36)
[2017-11-22] MEDS ORDERED: PRILOSEC OTC20 M1 PO (21:36)
[2017-11-22 21:47] VITALS: BP 159/77
== END 2017-11-22 21:54 ==
LOC: ERH 19:42
PROVIDERS: Pediatrics
DX: R11.2 Nausea with vomiting, unspecified (principal); R10.84 Generalized abdominal pain
CPT/HCPCS: 74176; 93005; 93010; 96361; 96374; 96375; J2405

== ENCOUNTER 2018-03-27 23:19 | Observation (INO) | payer OTHER ==
[~2018-03-27 23:19] MED LIST changes: +PRILOSEC OTC20 M1 PO; +ZOFRAN ODT4 M1 SL
--- NOTE | 2018-03-27 23:46 | ED PSYCHIATRIC COMPLAINT ---
History of Present Illness General Chief Complaint: ETOH/Drug Related Complaint Stated Complaint: ETOH Source: patient, old records, EMS Exam Limitations: no limitations Vital Signs & Intake/Output Vital Signs & Intake/Output Vital Signs Date Time Temp Pulse Resp B/P B/P Pulse O2 O2 Flow FiO2 Mean Ox Delivery Rate 03/28 0854 98.1 94 18 147/70 03/28 0854 98.1 94 18 147/70 03/28 0545 97.7 89 18 149/69 03/28 0545 97.7 89 18 149/69 96 Room Air 03/28 0250 88 18 128/79 03/28 0249 88 18 128/79 94 Room Air 03/28 0043 97.0 82 16 100/60 96 Room Air ED Intake and Output 03/28 0000 03/27 1200 Intake Total 0 Output Total Balance 0 Intake, Oral 0 Allergies Coded Allergies: quetiapine (Severe, THROAT CLOSES...SEROQUEL 05/06/17) perphenazine (Mild, ANXIETY...TRILAFON 05/06/17) clozapine (From CLOZARIL) (SEIZURES 05/06/17) Reconcile Medications Acamprosate Calcium 333 MG TABLET.DR 2 TAB PO TID alcohol cravings Albuterol Sulfate (Ventolin Hfa) 90 MCG HFA.AER.AD 2 PUF INH Q4-6 PRN PRN shortness of breath Take 2 puffs inhalation Q4-6 hours PRN for shortness of breath. Aspirin (Ecotrin*) 81 MG TABLET.DR 1 TAB PO DAILY HEART HEALTH Carbamazepine (Tegretol) 200 MG TABLET 1 TAB PO BID mood stabilization Carbamazepine 100 MG TAB.CHEW 1 TAB PO QPM mood stabilization Take with one 200mg tab po QPM for a total of 300mg QPM. Chlorpromazine HCl 25 MG TABLET 5 TAB PO QHS clear thoughts Take 5 tabs (125mg) po QHS. Chlorpromazine HCl 50 MG TABLET 1 TAB PO BID clear thoughts Take 1 tab po BID at 8AM and 1PM. Docusate Sodium 100 MG CAPSULE 1 CAP PO BID constipation Ergocalciferol (Vitamin D2) (Vitamin D2) 50,000 UNIT CAPSULE 1 CAP PO ONCE A WEEK vitamin support Take 1 cap po once a week. Folic Acid 1 MG TABLET 1 TAB PO DAILY SUPPLEMENT Gabapentin 400 MG CAPSULE 1 CAP PO TID seizures Insulin Lispro (Humalog) 100 UNIT/ML VIAL 0 SC SEE ADMIN CRITERIA diabetes Resume regular home insulin pump settings. Lisinopril (Prinivil) 5 MG TABLET 1 TAB PO DAILY HTN [place] Carbonate ([place] Carbonate ER) 450 MG TABLET.ER 1 TAB PO BID mood stability/depression Multivitamin (One Daily Multivitamin) 1 EACH TABLET 1 TAB PO DAILY SUPPLEMENT Nicotine Polacrilex (Nicorelief) 4 MG GUM 1 GUM PO Q2 HRS NEEDED PRN nicotine craving Omeprazole Magnesium (Prilosec Otc) 20 MG TABLET.DR 1 TAB PO DAILY STOMACH BURNING Ondansetron (Zofran Odt) 4 MG TAB.RAPDIS 1 TAB SL TID PRN NAUSEA AND VOMITING Pantoprazole Sodium (Protonix) 40 MG TABLET.DR 1 TAB PO DAILY GERD Polyethylene Glycol 3350 (Miralax) 17 GRAM/DOSE POWDER 1 PACKET PO DAILY constipation Prazosin HCl 5 MG CAPSULE 1 CAP PO AT BEDTIME nightmares Prazosin HCl (Minipress) 2 MG CAPSULE 1 CAP PO QHS nightmares Take with one 5mg cap po for a total of 7mg QHS. Propranolol HCl 10 MG TABLET 1 TAB PO BID tremor Saliva Substitute Combo No.9 (Biotene) 473 ML MOUTHWASH 2 SPRAY PO Q2P PRN dry mouth Simvastatin (Simvastatin*) 10 MG TABLET 1 TAB PO QPM CHOLESTEROL Thiamine HCl (Vitamin B-1) 100 MG TABLET 1 TAB PO DAILY SUPPLEMENT Trazodone HCl 100 MG TABLET 2 TAB PO QPM PRN insomnia Venlafaxine HCl (Effexor XR) 150 MG CAP.ER.24H 2 CAP PO DAILY depression Take 2 caps (300mg) po daily. Triage Note: PT BIBA FROM [facility]. PER EMS REPORT PT ADMITS TO DRINKING APPROXIMATELY 1 PINT OF VODKA THIS EVENING. PT ARRIVES AWAKE AND ALERT. WANDED BY SECURITY. CHANGED INTO BLUE SCRUBS. BELONGING SECURED. Triage Nurses Notes Reviewed? yes Onset: Just prior to arrival Duration: hour(s):, constant, continues in ED Timing: recent history Severity: severe Associated Symptoms: impaired concentration HPI: Prior to admission patient was brought from halfway for intoxication. He has a history of alcohol withdrawal seizures and DTs He denies fever chills nausea vomiting diarrhea abdominal pain chest pain shortness of breath headache dysuria rash bleeding suicidal ideation homicidal ideation hallucination. He requests alcohol detox. (Jordan Humphries MD) Past History Travel History Traveled to [place] past 21 day No Medical History Any Pertinent Medical History? see below for history Neurological: NONE EENT: NONE Cardiovascular: NONE Respiratory: NONE Gastrointestinal: NONE Hepatic: NONE Renal: NONE Musculoskeletal: NONE Psychiatric: alcohol dependence, bipolar disease, History of suicide attempts. 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 No (Jordan Humphries MD) Review of Systems Review of Systems Constitutional: Reports: no symptoms. EENTM: Reports: no symptoms. Respiratory: Reports: no symptoms. Cardiovascular: Reports: no symptoms. GI: Reports: no symptoms. Genitourinary: Reports: no symptoms. Musculoskeletal: Reports: no symptoms. Skin: Reports: no symptoms. Neurological/Psychological: Reports: see HPI, confusion. Hematologic/Endocrine: Reports: no symptoms. Immunologic/Allergic: Reports: no symptoms. All Other Systems: Reviewed and Negative (Jordan Humphries MD) Physical Exam Physical Exam General Appearance: well developed/nourished, awake, comfortable, obese Head: atraumatic, normal appearance Eyes: Bilateral: normal appearance, PERRL, EOMI. 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 patient not suicidal (Kristel LACKEYJordan) Progress Differential Diagnosis: drug intoxication, drug overdose, drug withdrawal, electrolyte abnormality, hypoglycemia Plan of Care: Orders Procedure Date/time Status Consistent Carbohydrate 2 03/28 B Active Discharge Patient 03/28 1138 Active Patient Safety Monitor 03/28 0340 Active Add-on Test (ER Only) 03/28 0210 Active OXYGEN SETUP (GEN) 03/28 0205 Active Saline Lock 03/[address] in observation 03/28 0205 Active Patient Data 03/28 0205 Active Vital Signs 03/28 0205 Active Activity/Ambulation 03/28 0205 Active Code Status 03/28 0205 Active CIWA 03/28 0204 Active CASE MANAGEMENT CONSULT 03/28 0204 Active LITHIUM 03/28 0040 Complete Patient Safety Monitor 03/27 2344 Active URINE DRUG SCREEN FOR ER ONLY 03/27 2344 Complete TEGRETOL LEVEL 03/27 2344 Complete ETHANOL 03/27 2344 Complete COMPREHENSIVE METABOLIC PANEL 03/27 2344 Complete CBC WITHOUT DIFFERENTIAL 03/27 2344 Complete FingerStick- Glucose 03/27 2336 Active Intake & Output 03/27 2326 Active Current Medications Sig/Dariusz Start time Last Medication Dose Stop Time Status Admin Carbamazepine 100 MG QPM 03/28 2100 AC (Tegretol) Chlorpromazine 100 MG AT BEDTIME 03/28 2100 AC (Thorazine 100MG) Chlorpromazine 25 MG AT BEDTIME 03/28 2100 AC (Thorazine 25MG Tab) Aspirin Buffered 81 MG DAILY 03/28 0900 AC 03/28 (Ecotrin) 0854 Atorvastatin Calcium 10 MG DAILY 03/28 0900 AC 03/28 (Lipitor) 0854 Carbamazepine 200 MG BID 03/28 0900 AC 03/28 (Tegretol) 0854 Gabapentin 400 MG TID 03/28 0900 AC 03/28 (Neurontin) 0854 Lisinopril 5 MG DAILY 03/28 0900 AC 03/28 (Prinivil) 0854 [place] Carbonate 450 MG BID 03/28 0900 AC 03/28 (Eskalith Cr) 0854 Propranolol HCl 10 MG BID 03/28 0900 AC 03/28 (Inderal 10 MG 0854 Tablet.) Chlorpromazine 50 MG 0800,1300 03/28 0800 AC 03/28 (Thorazine 25MG Tab) 0854 Venlafaxine HCl 300 MG 0800 03/28 0800 AC 03/28 (Effexor Xr) 0854 Albuterol Sulfate 2 PUF Q4-6 PRN PRN 03/28 0215 AC (Ventolin) Laboratory Tests 03/28/18 0040: Anion Gap 14, Estimated GFR > 60, BUN/Creatinine Ratio 20.0, Glucose 274 H, Calcium 8.6, Total Bilirubin 0.2, AST 17, ALT 18 L, Alkaline Phosphatase 68, Total Protein 6.5, Albumin 3.9, Globulin 2.6, Albumin/Globulin Ratio 1.5, CBC w Diff NO MAN DIFF REQ, RBC 4.31 L, MCV 96.7 H, MCH 33.0 H, MCHC 34.1, RDW 13.7 , MPV 7.9, Gran % 74.6, Lymphocytes % 17.7 L, Monocytes % 6.2, Eosinophils % 1.1, Basophils % 0.4, Absolute Granulocytes 9.2 H, Absolute Lymphocytes 2.2, Absolute Monocytes 0.8 H, Absolute Eosinophils 0.1, Absolute Basophils 0.1, Carbamazepine 6.8, [place] 0.7, Serum Alcohol 196.0 03/27/18 2358: Urine Opiates Screen < 100, Methadone Screen < 40, Barbiturate Screen < 60, Ur Phencyclidine Scrn < 6.00, Amphetamines Screen < 100, U Benzodiazepines Scrn < 85, Urine Cocaine Screen < 50, Urine Cannabis Screen < 5.00 Hand-Off Endorsed To: Ramiro Cantu DO Endorsed Time: 0700 Pending: other (CIWA, case mgmt) (Jordan Humphries MD) Departure Departure Disposition: STILL A PATIENT Condition: Stable Clinical Impression Primary Impression: Alcohol intoxication delirium Referrals: Charleen Montanez APRN (PCP/Family) Departure Forms: Customer Survey General Discharge Information (Jordan Humphries MD) ED Attending Observation Initial Observation Note: I have seen and personally examined TRU BRAVO on 03/28/18 at 0205. I agree with the current emergency department documentation. The disposition (admission or discharge) is uncertain at this time, he needs a period of observation for the following reason(s): Alcohol withdrawal, serial CIWA The ED Nurse caring for this patient has been personally informed as to what the patient is being observed for. (Jordan Humphries MD) Observation Re-Evaluation: I have reevaluated TRU BRAVO on 03/28/18 at 1138. The patient was seen at 7 AM. He has no tremors on physical exam -CIWA scores were obtained. The physical findings that support the continued need to observe this patient include [alcohol withdrawal with history of seizures]. Observation Discharge: I have reevaluated TRU BRAVO on 03/28/18 at 1138. The patient has mild tremors. His CIWA scores were 0. He is being discharged and will follow up with outpatient alcohol rehabilitation programs. The patient is: ([x]): Stable for discharge (): To be admitted to Nursing Floor (): To be placed in Observation on Nursing Floor (): For transfer to other facility The patient was being observed for As a result of that observation, I have determined . (Ramiro Cantu DO)
[2018-03-28 00:48] LABS: ABSOLUTE BASOPHIL COUNT 0.1 /CUMM (0.0-0.2); ABSOLUTE EOSINOPHIL COUNT 0.1 /CUMM (0.0-0.7); ABSOLUTE GRANULOCYTE CT 9.2 /CUMM (1.4-6.5); ABSOLUTE LYMPH COUNT 2.2 /CUMM (1.2-3.4); ABSOLUTE MONOCYTE COUNT 0.8 /CUMM (0.10-0.60); BASOPHIL % 0.4 % (0.0-2.0); EOSINOPHIL % 1.1 % (0-5); GRANULOCYTE % 74.6 % (42.2-75.2); HEMATOCRIT 41.7 % (42-52); MEAN CORPUSCULAR HGB CONC 34.1 G/DL (33.0-37.0); MEAN CORPUSCULAR VOLUME 96.7 FL (80.0-94.0); MEAN PLATELET VOLUME 7.9 FL (7.4-10.4); PLATELET COUNT 222 /CUMM (130-400); RBC DISTRIBUTION WIDTH 13.7 % (11.5-14.5); RED BLOOD CELL CT 4.31 /CUMM (4.70-6.10); WHITE BLOOD CELL COUNT 12.3 /CUMM (4.8-10.8)
[2018-03-28 02:50] VITALS: BP 128/79
[2018-03-28 03:04] LABS: LITHIUM 0.7 mmol/L (0.6-1.2)
[2018-03-28 05:45] VITALS: BP 149/69
[2018-03-28 12:20] VITALS: BP 152/84
== END 2018-03-28 12:24 ==
LOC: ERH 23:19 → ERHI 03-28 02:05
PROVIDERS: Emergency Medicine
DX: F10.121 Alcohol abuse with intoxication delirium (principal); Z79.82 Long term (current) use of aspirin; E11.9 Type 2 diabetes mellitus without complications; Z79.4 Long term (current) use of insulin; F31.9 Bipolar disorder, unspecified; F43.10 Post-traumatic stress disorder, unspecified; F42.9 Obsessive-compulsive disorder, unspecified; Z79.899 Other long term (current) drug therapy
CPT/HCPCS: 6090; 80307; G0378; G0480; J3230; J3490